=== PATIENT | male | born 1980 | race Hispanic/Latino ===

== ENCOUNTER 2018-09-01 13:15 | Inpatient (IN) ==
[2018-09-01] MEDS ORDERED: ZOSYN 4.5 GM in NS 100 ML IV ONE (13:42)
[2018-09-01] MEDS ORDERED: VANCOMYCIN 1 GM/NS 1 GM/250 ML IVPB IV ONE ×2 (13:42→23:00)
[2018-09-01] MEDS ORDERED: NS 1,000 ML IV ONE ×2 (13:42→15:14)
[2018-09-01] MEDS ORDERED: HUMULIN R (PARKWAY) ONE ×2 (14:19→16:29)
[2018-09-01] MEDS ORDERED: HUMULIN R IV ONE ×2 (14:20→15:33)
[2018-09-01 14:23] LABS: BE 1.2 mmoll (-3.0-3.0); BLOOD TYPE ARTERIAL; HCO3-(ACT) 25.8 mmoll (20.0-26.0); METHB 1.3 % (0.0-1.5); O2(CT) 13.5 mL/dL (15.0-23.0); O2HB 93.5 % (95.0-99.0); PCO2(98.6) 41 mmHg (35-45); PO2(98.6) 73 mmHg (60-100); SAMPLE BLOOD; SAO2 97.1 % (95.0-100.0); THB 10.2 g/dL (11.5-17.4); pH(98.6) 7.41 (7.35-7.45)
[2018-09-01 14:25] LABS: ALBUMIN 3.3 g/dL (3.5-5.0); CALCIUM 9.6 mg/dL (8.8-10.2); CREATININE 1.4 mg/dL (0.7-1.2); POTASSIUM 4.3 mmol/L (3.5-5.1); TOTAL BILIRUBIN 0.4 mg/dL (0.20-1.00); TOTAL PROTEIN 8.6 g/dL (6.3-8.3)
[2018-09-01 14:27] LABS: BASO# 0.04 X1000 (0.0-0.2); BASO% 0.4 % (0.0-0.8); EOS# 0.13 X1000 (0.0-0.7); EOS% 1.2 % (0.0-10.0); HEMATOCRIT 28.6 % (42.0-52.0); HEMOGLOBIN 9.5 g/dL (14.0-18.0); IMM GRAN# 0.03 X1000 (0.0-0.04); IMM GRAN% 0.3 % (0.0-0.5); LYMPH# 1.93 X1000 (1.2-3.4); LYMPH% 17.5 % (20.5-51.1); MCH 27.9 PG (27-31); MCHC 33.2 g/dL (33-37); MCV 84.1 FL (81-99); MONO# 0.71 X1000 (0.11-0.59); MONO% 6.4 % (1.7-9.3); NEUT# 8.18 X1000 (1.4-6.5); NEUT% 74.2 % (42.2-75.2); PLT 443 X1000 (130-400); WBC 11.02 X1000 (4.8-10.8)
[2018-09-01 14:29] LABS: ALLEN TEST YES; MODALITY ROOM AIR
--- NOTE | 2018-09-01 14:45 | EKG Report ---
Test Performed on : 09/01/2018 2:04:42 PM Test Reason : dizzy Blood Pressure : / mmHG Vent. Rate : 105 BPM Atrial Rate : 105 BPM P-R Int : 154 ms QRS Dur : 088 ms QT Int : 358 ms P-R-T Axes : 038 011 028 degrees QTc Int : 473 ms Sinus tachycardia. Otherwise normal ECG When compared with ECG of 15-AUG-2018 11:39, QT has shortened Unconfirmed Result
[2018-09-01 14:56] LABS: INFLUENZA A NEGATIVE (NEGATIVE); INFLUENZA B NEGATIVE (NEGATIVE)
--- NOTE | 2018-09-01 15:09 | Diag Imaging Result Doc PS360 ---
EXAM: CHEST-1 VIEW - 09/01/2018 HISTORY: short of breath TECHNIQUE: One view chest COMPARISON: 08/15/2018 FINDINGS: Heart size is normal. Inspiration is mildly shallow. The lungs appear clear. There is no pleural effusion or pneumothorax identified. IMPRESSION: Mildly shallow inspiration. No other evidence of acute disease. Electronically signed by Parrish Plunkett 09/01/2018 3:06 PM
[2018-09-01 15:12] LABS: SED RATE 137 mm/hr (0-15)
[2018-09-01 15:13] LABS: BILIRUBIN URINE NEGATIVE (NEGATIVE); BLOOD URINE 2+ (NEGATIVE); CLARITY CLEAR (CLEAR); COLOR YELLOW; KETONE URINE NEGATIVE (NEGATIVE); LEUKOCYTES URINE TRACE (NEGATIVE); NITRITE URINE NEGATIVE (NEGATIVE); PROTEIN URINE 2+(100 mg/dL) mg/dL (NEGATIVE); UROBILINOGEN URINE NORMAL
[2018-09-01 15:14] LABS: URINE BACTERIA 2+ /HFP; URINE CAST NONE SEEN /LPF; URINE CRYSTAL NONE SEEN /HPF; URINE EPITHELIAL CELLS <10 /HPF (<10); URINE RBC <10 /HPF (<10); URINE SOURCE CLEAN CATCH; URINE YEAST NONE SEEN /HPF
--- NOTE | 2018-09-01 15:14 | Diag Imaging Result Doc PS360 ---
EXAM: FOOT COMPLETE RIGHT - 09/01/2018 HISTORY: evaluate for osteo TECHNIQUE: Right foot three views COMPARISON: 06/30/2018 FINDINGS: There has been interval amputation of the distal lateral forefoot. There is been associated amputation of the third, fourth, and fifth toes, as well as the distal portions of the third, fourth, and fifth metatarsals. The distal margins of the remaining third, fourth, and fifth metatarsals are mildly irregular, but is difficult to determine if this relates to postsurgical change or early osteomyelitis. There is a new smooth defect at the lateral margin of the distal head of the second metatarsal, presumably from interval osteotomy. There is no fracture or dislocation identified. There are atherosclerotic calcifications noted. IMPRESSION: Postsurgical changes of interval amputation of distal lateral forefoot. Mild irregularity of the distal margins of the remaining portions of third, fourth, and fifth metatarsals. This is nonspecific and could relate to postsurgical change or early osteomyelitis. Apparent smooth osteotomy deformity at lateral margin of distal head of second metatarsal. Atherosclerotic calcifications noted. Electronically signed by Parrish Plunkett 09/01/2018 3:12 PM
--- NOTE | 2018-09-01 15:21 | PROVIDER DOCUMENTATION ---
This chart was entered by Yasmine Antony Scribe, acting as scribe for Morris Fagan MD. HPI-General Adult - General Chief Complaint: Dizziness Stated Complaint: RT TOE AMPUTEE / WOUND CARE Time Seen by Provider: 09/01/18 13:46 Source: patient Allergies/Adverse Reactions: Patient Allergies Allergy/AdvReac Type Severity Reaction Status Date / Time No Known Allergies Allergy Verified 09/01/18 13:25 Home Medications: Home Medication List Medication Instructions Recorded Confirmed Last Taken Type Alcohol Antiseptic Pads [Alcohol 1 ea TP TID #100 med..pad 08/19/18 Unknown Rx Pads] Blood Sugar Diagnostic [Blood 1 ea MC TID #100 strip 08/19/18 Unknown Rx Glucose Test Strip] Blood-Glucose Meter [Accu-Chek 1 ea MC TID #1 ea 08/19/18 Unknown Rx Guide Monitor System] Insulin NPH Hum/Reg Insulin Hm 25 unit SQ BID #1 insuln.pen 08/19/18 Unknown Rx [Humulin 70/30 Kwikpen] - History of Present Illness -Gen Adult Nature of Presenting Problems: 38 y/o male presents to ED with dizziness onset this morning. Pt reports he was [facility] and was sent to ED. Pt states Dr. Minor amputated digits 3- 5 of R foot in June. Pt is alert and oriented. Location of Pain/Injury: reports: feet Pain Radiation: reports: no radiation Quality of Pain: reports: aching Severity: reports: moderate Onset/Duration: reports: this morning Timing: reports: still present Context/Activities at Onset: reports: none Modifying Factors: improves with: nothing Associated Symptoms: reports: dizziness Similar Symptoms Previously?: No Recently seen or treated by another doctor?: Yes (wound care) Review of Systems - Adult - REVIEW OF SYSTEMS - ADULT Constitutional: denies: chills, fever Eyes: reports: no symptoms reported Ears, Nose, Mouth & Throat: reports: no symptoms reported Cardiovascular: denies: chest pain, palpitations Respiratory: denies: cough, shortness of breath Gastrointestinal: denies: abdominal pain, diarrhea, nausea, vomiting Genitourinary: reports: no symptoms reported Musculoskeletal: reports: other (RLE digits amputation). denies: back pain, joint pain Integumentary: reports: no symptoms reported Neurological: reports: dizziness/vertigo. denies: seizure Psychiatric: reports: no symptoms reported Endocrine: reports: no symptoms reported Hematologic/Lymphatic: reports: no symptoms reported Allergic/Immunologic: reports: no symptoms reported All Other Systems: Reviewed and Negative Past History - Adult - PAST MEDICAL HISTORY-ADULT Review of Records: reports: Old Records Reviewed, Nursing Assessment Review, Medications Reviewed Major Childhood Illnesses: reports: denies history Cardiovascular: reports: denies history Respiratory: reports: denies history Gastrointestinal: reports: denies history Obstetrical/Gynecological: reports: denies history Genitourinary: reports: denies history Musculoskeletal: reports: denies history Neurological: reports: denies history Psychiatric: reports: denies history Endocrine/Immune: reports: Diabetes Other Conditions: reports: denies history - PRIOR SURGERIES/PROCEDURES Surgical/Procedure History: reports: reviewed, not pertinent, orthopedic ( extremity) (amputation of R lateral foot and digits 3-5), other (R testicle removed) - IMMUNIZATION STATUS Childhood Immunizations: See Nurse Assessment Flu Vaccine: See Nurse Assessment - FAMILY HISTORY Family History: reviewed, not pertinent - SOCIAL HISTORY Smoking: non-smoker Substance Use: none/never Alcohol Use Frequency: occasionally Living Situation: family Physical Exam-General - PHYSICAL EXAM-ADULT Initial Vital Signs Reviewed: Yes - CONSTITUTIONAL General Appearance: appears well, alert, no apparent distress - EYES Eyes: PERRL/EOMI, pink conjunctivae - HEAD, EARS, NOSE, MOUTH & THROAT HENMT: normocephalic/atraumatic, moist mucous membranes, normal ENT inspection - NECK Neck: non-tender, full range of motion - RESPIRATORY Respiratory: chest non-tender, lungs clear, normal breath sounds - CARDIOVASCULAR Cardiovascular: tachycardia - GASTROINTESTINAL (ABDOMEN) Abdominal Exam: normal bowel sounds, non tender, soft - MUSCULOSKELETAL Back Exam: normal inspection, no CVA tenderness Extremity: normal range of motion, non-tender, normal gait, other (healing amputation of lateral R foot and digits 3-5; good granulation tissue of R foot) - SKIN Integumentary: normal color, warm/dry - NEUROLOGIC Neurologic: grossly normal - PSYCHIATRIC Psych/Mental Status: normal mood/affect, normal thought content, normal thought process Progress - PLAN OF CARE/RESULTS Progress/Plan/Lab Results: Vital Signs - 8 hr 09/01/18 13:20 Temperature 98.4 F Pulse Rate 104 H Respiratory Rate 16 Blood Pressure 98/61 O2 Sat by Pulse Oximetry 95 Orders Category Date Time Status Finger Stick Blood Sugar (ED) DIRECTED Care 09/01/18 13:41 Active CHEST-2 VIEWS [RAD] Stat Exams 09/01/18 13:42 Ordered FOOT COMPLETE RIGHT [RAD] Stat Exams 09/01/18 13:42 Ordered ABG [RESP] Routine Lab 09/01/18 13:41 Ordered ACETONE SERUM [CHEM] Stat Lab 09/01/18 13:41 Ordered BLOOD CULTURE [BLDCUL] Stat Lab 09/01/18 13:41 Uncollected C REACTIVE PROT QUANT [CHEM] Stat Lab 09/01/18 13:41 Uncollected CBC WITH ELECTRONIC DIFF [HEME] Stat Lab 09/01/18 13:41 Uncollected COMPREHENSIVE METABOLIC PANEL [CHEM] Stat Lab 09/01/18 13:[address] Stat Lab 09/01/18 13:41 Uncollected LACTATE, PLASMA [CHEM] Stat Lab 09/01/18 13:41 Uncollected SED RATE [HEME] Stat Lab 09/01/18 13:42 Uncollected TROPONIN T Stat Lab 09/01/18 13:[address] W/POSS RFLX CULT [URINALYSIS] Stat Lab 09/01/18 13:42 Uncollected WOUND CULTURE INC GRAM STAIN [RM] Stat Lab 09/01/18 13:44 Uncollected 0.9% Sodium Chloride Inj [Ns] 1,000 ml Med 09/01/18 13:42 Active IV 999 mls/hr Piperacillin/Tazobactam [Zosyn] 4.5 gm Med 09/01/18 13:42 Active 0.9% Sodium Chloride Inj [Ns] 100 ml IV NOW Vancomycin 1 gm/Ns Med 09/01/18 13:42 Active 1 gm in 250 ml IV NOW EKG [EKG] Stat Ther 09/01/18 13:41 Ordered Laboratory Tests 09/01/18 09/01/18 09/01/18 13:55 13:55 13:55 WBC RBC Hgb Hct MCV MCH MCHC RDW Std Deviation Plt Count MPV Immature Gran % (Auto) Neut % (Auto) Lymph % (Auto) Miner % (Auto) Eos % (Auto) Baso % (Auto) Immature Gran # (Auto) Neut # (Auto) Lymph # (Auto) Miner # (Auto) Eos # (Auto) Baso # (Auto) Specimen Type ARTERIAL Sample Site R RADIAL pH 7.41 pCO2 41 pO2 73 HCO3 25.8 Base Excess 1.2 Oxyhemoglobin 93.5 L ABG O2 Sat (Calculated) 13.5 L ABG O2 Saturation 97.1 ABG Carboxyhemoglobin 2.40 ABG Methemoglobin 1.3 Maurice Test YES A-a O2 Difference 25.0 Total Hemoglobin 10.2 L Lactate 0.80 Blood Gas Modality ROOM AIR FiO2 % 21.0 Sodium 127 L Potassium 4.3 Chloride 89 L Carbon Dioxide 24 L Anion Gap 14 BUN 18 Creatinine 1.4 H Estimated GFR/1.73 m2 56 BUN/Creatinine Ratio 13 Glucose 525 H* Calculated Osmolality 281 Calcium 9.6 Total Bilirubin 0.40 AST 12 ALT 9 L Alkaline Phosphatase 145 H Troponin T Total Protein 8.6 H Albumin 3.3 L Globulin 5.0 Albumin/Globulin Ratio 1.0 Plasma Lactate Acetone Level NEGATIVE Influenza A (Rapid) Influenza B (Rapid) 09/01/18 09/01/18 09/01/18 13:55 13:55 13:55 WBC 11.02 H RBC 3.40 L Hgb 9.5 L Hct 28.6 L MCV 84.1 MCH 27.9 MCHC 33.2 RDW Std Deviation 12.0 Plt Count 443 H MPV 9.0 Immature Gran % (Auto) 0.3 Neut % (Auto) 74.2 Lymph % (Auto) 17.5 L Miner % (Auto) 6.4 Eos % (Auto) 1.2 Baso % (Auto) 0.4 Immature Gran # (Auto) 0.03 Neut # (Auto) 8.18 H Lymph # (Auto) 1.93 Miner # (Auto) 0.71 H Eos # (Auto) 0.13 Baso # (Auto) 0.04 Specimen Type Sample Site pH pCO2 pO2 HCO3 Base Excess Oxyhemoglobin ABG O2 Sat (Calculated) ABG O2 Saturation ABG Carboxyhemoglobin ABG Methemoglobin Maurice Test A-a O2 Difference Total Hemoglobin Lactate Blood Gas Modality FiO2 % Sodium Potassium Chloride Carbon Dioxide Anion Gap BUN Creatinine Estimated GFR/1.73 m2 BUN/Creatinine Ratio Glucose Calculated Osmolality Calcium Total Bilirubin AST ALT Alkaline Phosphatase Troponin T 0.039 Total Protein Albumin Globulin Albumin/Globulin Ratio Plasma Lactate 2.1 Acetone Level Influenza A (Rapid) Influenza B (Rapid) 09/01/18 14:29 WBC RBC Hgb Hct MCV MCH MCHC RDW Std Deviation Plt Count MPV Immature Gran % (Auto) Neut % (Auto) Lymph % (Auto) Miner % (Auto) Eos % (Auto) Baso % (Auto) Immature Gran # (Auto) Neut # (Auto) Lymph # (Auto) Miner # (Auto) Eos # (Auto) Baso # (Auto) Specimen Type Sample Site pH pCO2 pO2 HCO3 Base Excess Oxyhemoglobin ABG O2 Sat (Calculated) ABG O2 Saturation ABG Carboxyhemoglobin ABG Methemoglobin Maurice Test A-a O2 Difference Total Hemoglobin Lactate Blood Gas Modality FiO2 % Sodium Potassium Chloride Carbon Dioxide Anion Gap BUN Creatinine Estimated GFR/1.73 m2 BUN/Creatinine Ratio Glucose Calculated Osmolality Calcium Total Bilirubin AST ALT Alkaline Phosphatase Troponin T Total Protein Albumin Globulin Albumin/Globulin Ratio Plasma Lactate Acetone Level Influenza A (Rapid) NEGATIVE Influenza B (Rapid) NEGATIVE Result Diagrams: 09/01/18 13:55 09/01/18 13:55 - REASSESSMENT Reassessment #1 Time Reassessed: 15:17 Status: improving (Still tachycardic, but states he feels a little better after IVF and insulin. Given also Vanco and Zosyn. Patient meets criteria for sepsis , but is not likely severe sepsis.) - EKG 1 Time of EKG reading by physician:: 14:04 EKG Read and Signed by:: Morris Fagan EKG Interpretation (*Must complete 3 of following elements*): Normal Rate: 105 Rhythm: Sinus tach [place]: normal QRS: normal SD Interval: normal ST Wave: normal - XRAY 1 XRAY Study: Chest Impression: Abnormal (FINDINGS: Heart size is normal. Inspiration is mildly shallow. The lungs appear clear. There is no pleural effusion or pneumothorax identified. IMPRESSION: Mildly shallow inspiration. No other evidence of acute disease. Electronically signed by Parrish Plunkett 09/01/2018 3:06 PM) - CONSULTS/PCP/HOSPITALIST Notification #1 *Consult/PCP/Hospitalist*: [place] Time Discussed: 15:17 Consult Disposition: Will see in ED #2 Consult: Kathia Time Discussed: 15:20 (will tell Figh and someone will see in consult) Departure - Departure Date of Disposition Decision: 09/01/18 Time of Disposition Decision: 15:17 DIAGNOSIS: Osteomyelitis of foot, right, acute, Type 1 diabetes mellitus with hyperglycemia, with long-term current use of insulin Sepsis Qualifiers: Sepsis type: sepsis due to unspecified organism Qualified Code(s): A41.9 - Sepsis, unspecified organism Disposition: ADMITTED INPATIENT 09 Certified Medical Emergency: Emergent Condition: Fair - Critical Care Note This patient required my direct & personal management of CC.: Yes Total Time (mins): 40 Critical Care Statement: This patient required my direct personal management to treat or rule out processes, the absence of which, could potentiallly result in sudden, clinically significant life or limb threatening deterioration. Attestation - Physician/ DOUG Attestation Patient care was provided by Advanced Practice Provider:: No The physician spent face to face time with patient:: Yes Advanced Practice Provider documentation review:: Supervising physician onsite and consulted in the evaluation and care of this patient. The physician did have a face to face encounter with the patient. This chart was documented by the indicated scribe, (Yasmine Antony, [employer]) and accurately reflects the services I performed and decisions made by me, Morris Fagan MD, as attested by the provider's signature.
--- NOTE | 2018-09-01 19:35 | Diag Imaging Result Doc PS360 ---
EXAM: ABDOMEN FLAT/UPRIGHT - 09/01/2018 HISTORY: pain TECHNIQUE: Supine and upright abdomen COMPARISON: None. FINDINGS: The bowel gas pattern appears nonspecific and nonobstructive. There are multiple air-fluid levels on the upright view, there is no substantial gaseous bowel distention identified. There is a moderate amount retained fecal debris in the colon. There is no free air identified. IMPRESSION: Bowel gas pattern which may relate to mild enterocolitis, superimposed on constipation. Electronically signed by Parrish Plunkett 09/01/2018 7:33 PM
[2018-09-01] MEDS ORDERED: ZOFRAN IV PRN (21:09)
[2018-09-01] MEDS ORDERED: VANCOMYCIN IV PER PHARMACY MISC SCH (21:09)
[2018-09-01] MEDS ORDERED: TYLENOL PO PRN (21:09)
[2018-09-01] MEDS: NS 1,000 ML IV SCH (23:35)
[2018-09-01] MEDS: SANTYL OINT TOP SCH (23:35)
[2018-09-01] MEDS: ZOSYN 3.375 GM in NS 50 ML IV SCH (23:36)
[2018-09-01] MEDS: HUMALOG DOSE (PARKWAY) SUBQ SCH (23:36)
--- NOTE | 2018-09-02 00:18 | HISTORY AND PHYSICAL ---
PRIMARY CARE PHYSICIAN: None. Followed by Dr. Minor, General Surgery, and the Wound Center. CHIEF COMPLAINT: Dizziness while at the Wound Care Center today. Sent to the ER for evaluation. HISTORY OF PRESENTING ILLNESS: This is a 38-year-old male who presents to [facility] ER from the Wound Center here at [place] after he was seen there today due to having recent right toe amputation related to diabetic foot ulcer with osteomyelitis, and when he was at the wound clinic today, he complained of being dizzy and overall not feeling well, so they sent him to the emergency room for evaluation and treatment. When he arrived to the emergency room, his blood pressure was 98/61, his sodium was 127, creatinine of 1.4 which appears to be around his baseline as he has some underlying chronic kidney disease. His blood sugar was 525. Anion gap was 14. Acetone level was negative. Influenza A and B were negative. We did a chest x-ray that was read as no evidence of acute disease. We did a right foot x-ray that showed an impression of postsurgical changes of interval amputation of the distal lateral forefoot, nonspecific postsurgical changes or early osteomyelitis, so he is being admitted to the medical unit for further evaluation and treatment. It is noted that he has received 10 units of regular IV x2 separate doses, and his blood sugar is now down to 354. He also received a dose of Zosyn and vancomycin in the emergency room along with 2 L of normal saline. PAST MEDICAL HISTORY: 1. Diabetes type 2 with hyperglycemia, uncontrolled. 2. Osteomyelitis of his right foot. 3. Chronic kidney disease. PAST SURGICAL HISTORY: Right 3rd and 4th toe amputation and right testicle removed. FAMILY HISTORY: Reviewed and noncontributory. SOCIAL HISTORY: Currently lives with family. Denies any tobacco, alcohol, or illicit drug use. ALLERGIES: He has no known drug allergies. HOME MEDICATIONS: We need to obtain a current list and restart as appropriate. Will have nursing to update and confirm the home medications, and then we will restart them as appropriate. LABORATORY DATA: Showed a white blood cell count of 11.02, hemoglobin 9.5, hematocrit 28.6, platelets 443,000. ABG showed a pH of 7.41, pCO2 of 41, pO2 of 73, bicarb 25.8, and this was on room air. Sodium 127, potassium 4.3, chloride 89, CO2 of 24, BUN of 18, creatinine 1.4, glucose 525. Troponin of 0.039. Plasma lactate of 2.1. Urinalysis was negative nitrites with trace of white blood cells, 2+ bacteria, negative ketones. Acetone level was negative. Influenza A and B were negative. IMAGING STUDIES: Chest x-ray showed no evidence of acute disease. Right foot x-ray showed postsurgical changes of interval amputation of the distal lateral forefoot, mild irregularity of the distal margins of the remaining portions of the 3rd, 4th, and 5th metatarsals that was nonspecific and could relate to postsurgical change or early osteomyelitis, apparent smooth osteotomy deformity of the lateral margin of the distal head of the 2nd metatarsal. EKG showed sinus tachycardia at 105. REVIEW OF SYSTEMS: He denied any fever, chills, blurred vision. He was positive for dizziness. He denied any chest pain, coughing, shortness of breath. He denies any abdominal pain, constipation, diarrhea, burning or hurting with urination. PHYSICAL EXAMINATION: On arrival, he had a temperature of 98.4 degrees, pulse 104, respirations 16, blood pressure was 98/61, saturating 95% on room air. Recheck shows a blood pressure of 122/65 currently. GENERAL: This is a 38-year-old male who is lying in the bed and answers questions appropriately. HENT: Normocephalic, atraumatic. Normal ENT inspection. Oropharynx and nares are clear. EYES: Pupils are equal, round, reactive to light and accommodation. Extraocular movements are intact. NECK: Normal inspection. Normal range of motion. LUNGS: Clear to auscultation bilaterally with equal lung expansion and chest wall movement. HEART: Regular rate and rhythm. No murmurs, rubs, or gallops. ABDOMEN: Soft, nontender, nondistended. Bowel sounds are present x4 quadrants. MUSCULOSKELETAL: He has 5/5 strength x4 extremities. He is noted to have on his right foot a dressing that is dry and intact, this being his 3rd, 4th, and 5th toes on the right foot. He was seen at the wound clinic today so I did not remove that dressing at this time. NEUROLOGICAL: The cranial nerves 2 through 12 appear grossly intact. ASSESSMENT: 1. Hyponatremia. 2. Diabetes type 2 with hyperglycemia, uncontrolled. 3. Right diabetic foot ulcer with early osteomyelitis. 4. Some mild hypotension that is now resolved. PLAN: He is going to be admitted to the medical unit. Placed on telemetry. Diabetic diet. We will consult Wound Care. We will consult General Surgery who has been following him in the Wound Care Center. Place him on pattern blood sugars with sliding scale insulin, moderate protocol. Placed him on vancomycin per pharmacy protocol and Zosyn 3.375 g IV q.6. We need update and confirm his home medications and restart those as appropriate. Place on normal saline at 125 mL/hr. We will recheck a CBC and a BMP in the a.m., and further orders after being seen by attending. Dictated by JUANITA Olson for Davonte Keene MD cc: JUANITA Olson MD
--- NOTE | 2018-09-02 00:39 | PROGRESS NOTE ---
DATE: 09/01/2018 The patient came in with nausea, vomiting, abdominal pain, and he had some dizziness. He was seen in the Wound Care Clinic. He had a recent amputation, but was admitted for the nausea, vomiting. He was dizzy, did not feel well. He was a bit tachycardic and hypotensive when he came in. His white count was 11. Sedimentation rate was very high, 137. His sugar was 525. Now he says he has been compliant with his medications, not completely clear he has been. We discharged him on 25 units b.i.d. of 70/30. I am not sure how compliant he has been with that though but we will continue to follow. There is no evidence at this point of DKA but we will continue fluids and continue to monitor closely. There is concern in his foot that he has residual osteomyelitis but he had a resection done per Dr. Minor. We will get them to comment on it. That being said, his sedimentation rate is high but this could be related to multiple issues, not necessarily osteomyelitis. It is not clear he has osteomyelitis based on those x-ray findings. The wound looks okay. He has got a little bit of eschar there. We will get Wound Care to evaluate him and Dr. Minor and he may need some collagenase on a little bit of eschar there but we will continue to follow. Main issues today are getting his sugars under control and getting the nausea medications under control as well. This is a [id number] encounter note with Belia Canchola. cc: Davonte Keene MD
[2018-09-02] MEDS ORDERED: NS 500 ML IV ONE (00:58)
[2018-09-02] MEDS ORDERED: NS 1,000 ML IV ONE (03:13)
[2018-09-02] MEDS ORDERED: MOTRIN PO PRN (03:16)
[2018-09-02] MEDS: ZOSYN 3.375 GM in NS 50 ML IV SCH ×5 (04:17→22:10)
[2018-09-02] MEDS ORDERED: DOPAMINE 800 MG/D5W 800 MG/250 ML IV.SOLN IV SCH (05:30)
[2018-09-02] MEDS ORDERED: DOPAMINE 400 MG/D5W 400 MG/500 ML IV.SOLN IV SCH (05:30)
[2018-09-02] MEDS ORDERED: DOPAMINE 800 MG/D5W 800 MG/250 ML IV.SOLN ONE (05:33)
[2018-09-02] MEDS: NS 1,000 ML IV SCH ×3 (06:30→22:10)
[2018-09-02 07:00] LABS: BASO# 0.03 X1000 (0.0-0.2); BASO% 0.4 % (0.0-0.8); EOS# 0.29 X1000 (0.0-0.7); EOS% 3.8 % (0.0-10.0); HEMATOCRIT 23.6 % (42.0-52.0); HEMOGLOBIN 7.4 g/dL (14.0-18.0); IMM GRAN# 0.01 X1000 (0.0-0.04); IMM GRAN% 0.1 % (0.0-0.5); LYMPH# 1.75 X1000 (1.2-3.4); LYMPH% 23.2 % (20.5-51.1); MCH 26.7 PG (27-31); MCHC 31.4 g/dL (33-37); MCV 85.2 FL (81-99); MONO# 0.64 X1000 (0.11-0.59); MONO% 8.5 % (1.7-9.3); MPV 8.7 FL (7.4-10.4); NEUT# 4.82 X1000 (1.4-6.5); PLT 373 X1000 (130-400); RBC 2.77 XMIL (4.7-6.1); RDW 11.8 % (11.5-14.5); WBC 7.54 X1000 (4.8-10.8)
[2018-09-02 07:18] LABS: AGAP 11; BUN 14 mg/dL (8-22); CALCIUM 8.3 mg/dL (8.8-10.2); CHLORIDE 103 mmol/L (98-107); COSMO 278; CREATININE 1.1 mg/dL (0.7-1.2); ESTIMATED GFR > 60; GLUCOSE 166 mg/dL (70-104); POTASSIUM 3.7 mmol/L (3.5-5.1); SODIUM 137 mmol/L (136-145); TCO2 23 mmol/L (25-35)
[2018-09-02 07:42] LABS: BILIRUBIN URINE NEGATIVE (NEGATIVE); BLOOD URINE TRACE (NEGATIVE); CLARITY CLEAR (CLEAR); COLOR YELLOW; KETONE URINE NEGATIVE (NEGATIVE); LEUKOCYTES URINE NEGATIVE (NEGATIVE); NITRITE URINE NEGATIVE (NEGATIVE); PROTEIN URINE 1+(30 mg/dL) mg/dL (NEGATIVE); SP GRAVITY URINE 1.005; UROBILINOGEN URINE NORMAL
[2018-09-02 07:56] LABS: URINE BACTERIA 1+ /HFP; URINE EPITHELIAL CELLS <10 /HPF (<10); URINE RBC <10 /HPF (<10); URINE SOURCE CATH
[2018-09-02] MEDS ORDERED: HUMALOG (PARKWAY) SUBQ SCH (08:13)
[2018-09-02] MEDS: SANTYL OINT TOP SCH (10:13)
[2018-09-02] MEDS: HUMALOG DOSE (PARKWAY) SUBQ SCH ×3 (10:19→18:10)
[2018-09-02] MEDS ORDERED: TYLENOL PO ONE (12:39)
[2018-09-02] MEDS ORDERED: BENADRYL PO ONE (12:40)
[2018-09-02 15:52] LABS: IRON SATURATION 9 %; TIBC 160 ug/dL; TOTAL IRON 15 ug/dL (53-167); UNBOUND IRON 145 ug/dL (112-346)
[2018-09-02] MEDS ORDERED: VANCOMYCIN 1,650 MG in NS 250 ML IV SCH (17:00)
[2018-09-02] MEDS ORDERED: NS 1,000 ML IV SCH (18:00)
[2018-09-02] MEDS ORDERED: CYANOCOBALAMIN IM SCH (18:30)
[2018-09-02] MEDS ORDERED: ZOFRAN IV PRN (20:47)
[2018-09-02] MEDS ORDERED: HUMULIN 70/30 SUBQ SCH (21:00)
[2018-09-02] MEDS ORDERED: HUMULIN 70/30 (PARKWAY) SUBQ SCH (21:00)
[2018-09-02] MEDS: HUMALOG SUBQ SCH (21:04)
[2018-09-02] MEDS: HUMULIN 70/30 SUBQ SCH (22:02)
[2018-09-02 22:38] LABS: FERRITIN 802 ng/mL (30-400)
[2018-09-03] MEDS: TYLENOL PO PRN ×2 (00:02→16:48)
--- NOTE | 2018-09-03 01:18 | GENERAL SURGERY CONSULTATION ---
DATE: 09/02/2018 REQUESTING PHYSICIAN: Yecenia REASON FOR CONSULTATION: Consult concerning right foot wound. HISTORY OF PRESENT ILLNESS: The patient is a 38-year-old male who is well known to me for a previous debridement and amputations, who was in the Wound Care Center having a wound VAC change. He developed dizziness. He was seen and found to be hypotensive and hyperglycemic with a blood sugar in the 500s. He was admitted, started resuscitation. His wound had previously been debrided and further amputations been done at the beginning of the month, and his wound has continued to worsen. We did have a wound VAC on it, it has been off for right now. The patient has no complaints right now as far as his foot, but he does have exposed bone on the 5th metatarsal. I was asked to weigh an opinion. PAST MEDICAL HISTORY: Includes: 1. Diabetes mellitus type 2. 2. Osteomyelitis. 3. Chronic kidney disease. PAST SURGICAL HISTORY: Includes previous amputations and right testicular surgery. FAMILY HISTORY: Reviewed with the patient, noncontributory. SOCIAL HISTORY: Lives with family. ALLERGIES: None. HOME MEDICATIONS: Reviewed. REVIEW OF SYSTEMS: A full 10 point review of systems obtained and negative other than as specified in HPI. PHYSICAL EXAMINATION: Vital Signs: The patient's current temperature is 97.4 degrees, pulse 96, most recent blood pressure 117/70, O2 saturation 100%. General: No acute distress. male, looks stated age. HEENT: Normocephalic, atraumatic. Pupils are equal, round, and reactive to light. Mucous membranes moist. Oropharynx benign. Neck: Supple. Trachea midline. Cardiovascular: Regular rate and rhythm. Lungs: Grossly clear. Abdomen: Soft, nontender, and nondistended. Extremities: Amputation site to the right foot noted. He does have exposed metatarsal head at the 5th metatarsal. He has a significant amount of slough still in the wound. Vascular: All extremities perfused. Neurologic: Grossly intact. Skin: Wound as noted above. LABORATORY DATA: White blood cell count is 7, hematocrit 23, platelet count 373 ,000. Electrolytes reviewed. IMAGING: Reviewed. ASSESSMENT AND PLAN: The patient is a 38-year-old male with poorly- controlled diabetes, now with continued wound issues to the right foot. 1. Chronic wound to the right foot. At this time we will plan on further debridement and amputation in the OR on Wednesday. Discussed with the patient. He is aware of the risks, benefits, and alternatives were discussed. All questions answered. 2. Multiple medical comorbidities currently being managed by the Hospitalist. 3. Anemia. Hematocrit was 23. Unsure of the exact etiology, but he is apparently going to give blood here soon. cc: Gopal Minor MD MTDD
[2018-09-03] MEDS: HUMALOG SUBQ SCH ×5 (02:16→21:49)
[2018-09-03] MEDS: ZOSYN 3.375 GM in NS 50 ML IV SCH ×4 (04:24→20:27)
[2018-09-03 07:00] LABS: BASO# 0.03 X1000 (0.0-0.2); BASO% 0.3 % (0.0-0.8); EOS# 0.27 X1000 (0.0-0.7); HEMATOCRIT 27.2 % (42.0-52.0); HEMOGLOBIN 8.8 g/dL (14.0-18.0); LYMPH# 2.25 X1000 (1.2-3.4); LYMPH% 25.1 % (20.5-51.1); MCH 27.6 PG (27-31); MCHC 32.4 g/dL (33-37); MCV 85.3 FL (81-99); MONO# 0.74 X1000 (0.11-0.59); MONO% 8.2 % (1.7-9.3); MPV 8.8 FL (7.4-10.4); NEUT# 5.68 X1000 (1.4-6.5); NEUT% 63.4 % (42.2-75.2); PLT 380 X1000 (130-400); RBC 3.19 XMIL (4.7-6.1); RDW 12.1 % (11.5-14.5); WBC 8.97 X1000 (4.8-10.8)
[2018-09-03 07:23] LABS: AGAP 10; BUN 11 mg/dL (8-22); CALCIUM 8.1 mg/dL (8.8-10.2); CHLORIDE 102 mmol/L (98-107); COSMO 276; CREATININE 1.1 mg/dL (0.7-1.2); ESTIMATED GFR > 60; GLUCOSE 174 mg/dL (70-104); POTASSIUM 3.5 mmol/L (3.5-5.1); SODIUM 136 mmol/L (136-145); TCO2 24 mmol/L (25-35)
[2018-09-03] MEDS ORDERED: VENOFER 200 MG in NS 150 ML IV SCH (09:00)
[2018-09-03] MEDS: VENOFER 200 MG in NS 150 ML IV SCH (11:53)
[2018-09-03] MEDS: SANTYL OINT TOP SCH (11:54)
[2018-09-03] MEDS: HUMULIN 70/30 SUBQ SCH ×2 (12:19→18:23)
--- NOTE | 2018-09-03 13:24 | GENERAL SURGERY PROGRESS NOTE ---
DATE: 09/03/2018 TIME: 9:52 in the morning. Mr. Das is comfortable. He is eating. His foot is wrapped. He is prepared for surgery by Dr. Minor on Wednesday. He has no complaints today. We will continue with this current treatment. cc: Raghavendra Snyder MD
[2018-09-03] MEDS: VANCOMYCIN 1,650 MG in NS 250 ML IV SCH (14:55)
[2018-09-03] MEDS: CYANOCOBALAMIN IM SCH ×2 (16:48→18:52)
--- NOTE | 2018-09-03 20:19 | PROGRESS NOTE ---
DATE: 09/03/2018 SUBJECTIVE: This patient is resting comfortably in bed. He is not complaining of pain at this moment. No acute events overnight. OBJECTIVE: Vital Signs: Temperature 100.1 degrees, pulse 93, respiratory rate 16, blood pressure 127/77, oxygen saturation 100% on room air. HEENT: Head normocephalic. No trauma. PERRLA. Neck: Supple. No JVD. No masses. Central trachea. Chest: Clear to auscultation. No wheezing. No rales. Abdomen: Soft, nontender, nondistended. No hepatosplenomegaly. Extremities: Amputation site to the right foot noted. He does have exposed metatarsal head at the 5th metatarsal, everything is covered with a dressing. Neurological: Alert and oriented x3. No focal deficits. LABORATORY: WBC 8.9, hemoglobin 8.8, hematocrit 27.2, platelets 380,000, sodium 136, potassium 3.5, chloride 102, bicarbonate 24, BUN 11, creatinine 1.1, glucose 174, calcium 8.1. ASSESSMENT AND PLAN: 1. Right diabetic foot ulcer with bone exposure/osteomyelitis, surgery department on board. Hopefully, this coming Wednesday. This patient will go to the OR for debridement and/or amputation. This has been discussed with the patient already, continue with antibiotics and pain medication. 2. Uncontrolled type 2 diabetes, blood sugar seems to be better controlled, continue with the same management. I will ask for a new hemoglobin A1c. 3. Hyponatremia, likely pseudohyponatremia due to hyperglycemia, today is normal. 4. Mild hypotension upon admission, resolved. cc: Nehemiah Flor MD
[2018-09-03] MEDS: NS 1,000 ML IV SCH (20:27)
[2018-09-04] MEDS: ZOSYN 3.375 GM in NS 50 ML IV SCH ×3 (02:31→17:55)
[2018-09-04] MEDS: VANCOMYCIN 1,650 MG in NS 250 ML IV SCH (04:12)
[2018-09-04] MEDS: HUMALOG SUBQ SCH ×4 (06:26→21:08)
[2018-09-04 07:08] LABS: BASO# 0.04 X1000 (0.0-0.2); BASO% 0.4 % (0.0-0.8); EOS# 0.25 X1000 (0.0-0.7); EOS% 2.3 % (0.0-10.0); HEMOGLOBIN 7.8 g/dL (14.0-18.0); IMM GRAN# 0.02 X1000 (0.0-0.04); IMM GRAN% 0.2 % (0.0-0.5); LYMPH# 2.45 X1000 (1.2-3.4); LYMPH% 22.2 % (20.5-51.1); MCH 27.9 PG (27-31); MCHC 32.5 g/dL (33-37); MCV 85.7 FL (81-99); MONO# 0.78 X1000 (0.11-0.59); MONO% 7.1 % (1.7-9.3); MPV 8.8 FL (7.4-10.4); NEUT# 7.49 X1000 (1.4-6.5); NEUT% 67.8 % (42.2-75.2); PLT 465 X1000 (130-400); RDW 12.1 % (11.5-14.5); WBC 11.03 X1000 (4.8-10.8)
[2018-09-04 07:22] LABS: HEMOGLOBIN A1C 10.9 % (4.8-6.0)
[2018-09-04 07:27] LABS: BUN 6 mg/dL (8-22); CALCIUM 8.3 mg/dL (8.8-10.2); CREATININE 0.9 mg/dL (0.7-1.2); ESTIMATED GFR > 60; GLUCOSE 237 mg/dL (70-104); TCO2 24 mmol/L (25-35)
[2018-09-04 08:02] LABS: CHLORIDE 101 mmol/L (98-107); POTASSIUM 3.9 mmol/L (3.5-5.1); SODIUM 138 mmol/L (136-145)
[2018-09-04 08:19] LABS: AGAP 13; COSMO 281
--- NOTE | 2018-09-04 08:25 | GENERAL SURGERY PROGRESS NOTE ---
DATE: 09/04/2018 SUBJECTIVE: It is 8:15 in the morning. Mr. Das is doing generally well, has no complaints. He understands the plan for surgery for tomorrow. Bandage is dry and intact. cc: Raghavendra Snyder MD
[2018-09-04] MEDS ORDERED: INSULIN PEN NEEDLES ONE (09:49)
[2018-09-04] MEDS: HUMULIN 70/30 SUBQ SCH ×2 (10:06→17:56)
[2018-09-04] MEDS: VENOFER 200 MG in NS 150 ML IV SCH (10:06)
[2018-09-04] MEDS: SANTYL OINT TOP SCH (10:07)
[2018-09-04] MEDS: NS 1,000 ML IV SCH (10:08)
--- NOTE | 2018-09-04 12:07 | PROGRESS NOTE ---
DATE: 09/04/2018 SUBJECTIVE: No acute events overnight. This patient is resting comfortably in bed. The plan is to go for surgery tomorrow. OBJECTIVE: Vital Signs: Temperature 99 degrees, pulse 95, respiratory rate 20, blood pressure 127/84, oxygen saturation 100% on room air. HEENT: Head normocephalic. No trauma. PERRLA. Neck: Supple. No JVD. No masses. Central trachea. Chest: Clear to auscultation. No wheezing. No rales. Abdomen: Soft. Nontender, nondistended. No hepatosplenomegaly. Extremities: No edema. No clubbing. No cyanosis. He does have an exposed metatarsal head at the 5th metatarsal area. Everything is covered with a dressing. Neurological: Alert and oriented x3. No focal deficits. LABORATORY: WBC 11.0, hemoglobin 7.8, hematocrit 24, platelets 465,000. Sodium 138, potassium 2.9, chloride 101, bicarbonate 24, BUN 6, creatinine 0.9, glucose 237, calcium 8.3. ASSESSMENT AND PLAN: 1. Right diabetic foot ulcer with bone exposure/osteomyelitis. Surgery Department on board. Hopefully, he will go for surgery tomorrow. He will be NPO after midnight. 2. Uncontrolled type 2 diabetes. It looks like he did not take his 2 doses of 70/30 yesterday but we started doing that today. We will continue with the same management and we will readjust the dose of the insulin as needed. His hemoglobin A1c is elevated at 10.9, so this patient has not been taking care of his diabetes at home. 3. Hyponatremia upon admission, likely pseudohyponatremia due to hyperglycemia. This is normal. 4. Mild hypotension upon admission, resolved. cc: Nehemiah Flor MD
[2018-09-04] MEDS: CYANOCOBALAMIN IM SCH (17:55)
[2018-09-05] MEDS: ZOSYN 3.375 GM in NS 50 ML IV SCH ×6 (00:47→23:53)
[2018-09-05] MEDS: VANCOMYCIN 1,650 MG in NS 250 ML IV SCH ×2 (01:32→20:27)
[2018-09-05] MEDS: HUMALOG SUBQ SCH ×4 (06:23→20:27)
--- NOTE | 2018-09-05 06:32 | GENERAL SURGERY PROGRESS NOTE ---
DATE: 09/05/2018 SUBJECTIVE: Patient seems to be doing well. He has no questions as far as surgery is concerned. OBJECTIVE: Vital Signs: The patient is currently afebrile. His vital signs are stable. General Examination: No acute distress. Cardiovascular: Regular rate and rhythm. Lungs: Grossly clear. Abdomen: Soft, nontender, nondistended. Extremities: Amputation site unchanged. Laboratory: From yesterday, hematocrit is still down to 24. ASSESSMENT AND PLAN: A 38-year-old with poorly-controlled diabetes and a nonhealing wound to the right foot. 1. Chronic wound to right foot. At this time, we will plan on further debridement and amputation in the operating room today. Discussing the risks, benefits, and alternatives, he is aware. We will try to place the patient's wound VAC. 2. Anemia. At this time, the patient's hematocrit is 24. He was given a unit of blood while at [place]. May need to consider outpatient colonoscopy and esophagogastroduodenoscopy to evaluate further. cc: Gopal Minor MD
[2018-09-05 06:50] LABS: BASO# 0.04 X1000 (0.0-0.2); BASO% 0.4 % (0.0-0.8); EOS# 0.32 X1000 (0.0-0.7); EOS% 3.1 % (0.0-10.0); HEMOGLOBIN 9.3 g/dL (14.0-18.0); IMM GRAN# 0.03 X1000 (0.0-0.04); IMM GRAN% 0.3 % (0.0-0.5); LYMPH% 25.8 % (20.5-51.1); MCH 27.5 PG (27-31); MCHC 32.1 g/dL (33-37); MCV 85.8 FL (81-99); MONO# 0.95 X1000 (0.11-0.59); MONO% 9.1 % (1.7-9.3); MPV 8.6 FL (7.4-10.4); NEUT# 6.41 X1000 (1.4-6.5); NEUT% 61.3 % (42.2-75.2); PLT 438 X1000 (130-400); RBC 3.38 XMIL (4.7-6.1); RDW 12.2 % (11.5-14.5); WBC 10.45 X1000 (4.8-10.8)
[2018-09-05 07:19] LABS: AGAP 12; ALB/GLOB RATIO 0.7; ALBUMIN 2.8 g/dL (3.5-5.0); ALKALINE PHOSPHATASE 96 U/L (32-122); BUN 7 mg/dL (8-22); CHLORIDE 102 mmol/L (98-107); COSMO 282; CREATININE 1.2 mg/dL (0.7-1.2); ESTIMATED GFR > 60; GLUCOSE 141 mg/dL (70-104); GOT 10 U/L (10-34); GPT 7 U/L (10-44); POTASSIUM 3.4 mmol/L (3.5-5.1); SODIUM 141 mmol/L (136-145); TCO2 27 mmol/L (25-35); TOTAL BILIRUBIN 0.17 mg/dL (0.20-1.00); TOTAL PROTEIN 7.1 g/dL (6.3-8.3)
[2018-09-05 07:57] LABS: LYMPHS 38 % (21-51); MONO 2 % (1-9); SEGS 60 % (42-75)
[2018-09-05] MEDS: VENOFER 200 MG in NS 150 ML IV SCH (08:45)
[2018-09-05] MEDS: SANTYL OINT TOP SCH (08:46)
[2018-09-05] MEDS: HUMULIN 70/30 SUBQ SCH ×2 (09:02→19:03)
[2018-09-05] MEDS ORDERED: VERSED ONE (11:19)
[2018-09-05] MEDS ORDERED: XYLOCAINE-MPF 2% ONE (11:19)
[2018-09-05] MEDS ORDERED: FENTANYL ONE (11:19)
[2018-09-05] MEDS ORDERED: DIPRIVAN 1% ONE (11:19)
--- NOTE | 2018-09-05 13:43 | OPERATIVE NOTE ---
PROCEDURE DATE: 09/05/2018 PREOPERATIVE DIAGNOSES: 1. Chronic wound, right foot. 2. Osteomyelitis of the right 5th metatarsal. POSTOPERATIVE DIAGNOSES: 1. Chronic wound, right foot. 2. Osteomyelitis of the right 5th metatarsal. PROCEDURES: 1. Debridement of skin, subcutaneous tissue, muscle, and fascia measuring 20 square cm. 2. Amputation of 5th right metatarsal bone. 3. Placement of a negative pressure wound dressing. SURGEON: Gopal iMnor MD POLYSOMNOGRAPHER: None. ANESTHESIA: General endotracheal. INTRAOPERATIVE FINDINGS: As dictated. COMPLICATIONS: None at time of this dictation. ESTIMATED BLOOD LOSS: 10 mL. SPECIMEN REMOVED: Bone, skin, and subcutaneous tissue. BRIEF HISTORY: A 38-year-old male with poorly-controlled diabetes. He had a chronic wound that was not healing and we needed to debride more bone. The risks, benefits, and alternatives were discussed. All questions answered. DESCRIPTION OF PROCEDURE: After informed consent was obtained, the patient was brought to the operative theatre and transferred to the operative table, placed in supine position. General endotracheal anesthesia was then performed without complication. A formal time-out was then performed, confirming patient, date, and procedure. All were in agreement. At that time, attention was turned to the right foot. The right foot was prepped and draped in sterile fashion. After the time-out, we turned our attention to it. We debrided back some of the skin, subcutaneous tissue, muscle, and fascia. It was approximately 20 square cm. We extended the incision laterally to find the junction of the tarsal bone and the metatarsal, got into the synovial joint, and removed the 5th metatarsal completely. There was some necrotic tissue, which we debrided. We then closed it in an extended excision with nylon suture. We then formatted a negative pressure wound dressing with a black sponge and placed it on with a good seal. The patient tolerated the procedure well and was transferred back to the recovery room in stable condition. cc: Gopal Minor MD
[2018-09-05] MEDS ORDERED: NORCO-5 PO PRN (15:09)
[2018-09-05] MEDS: NS 1,000 ML IV SCH (16:40)
--- NOTE | 2018-09-05 18:05 | PROGRESS NOTE ---
DATE: 09/05/2018 SUBJECTIVE: This patient had a surgical procedure today, debridement of skin, subcutaneous tissue, muscle and fascia measuring about 20 cm2, amputation of the 5th right metatarsal bone, and placement of a negative pressure wound dressing. He seems to be tolerating well the procedure. He is not complaining of pain at this moment. Will continue with antibiotics and basically the same management. Surgery Department following this patient closely. OBJECTIVE: Vital Signs: Temperature 97.8, pulse 96, respiratory rate 16, blood pressure 121/78, oxygen saturation 98% on room air. HEENT: Head normocephalic. No trauma. PERRLA. Neck: Supple. No JVD. No masses. Central trachea. Chest: Clear to auscultation. No wheezing. No rales. Abdomen: Soft, nontender, nondistended. No hepatosplenomegaly. Extremities: Right foot with a new dressing with a wound VAC machine. No signs of bleeding or infection at this point. Neurological: Alert and oriented x3. No focal deficits. LABORATORY DATA: WBC 10.4, hemoglobin 9.3, hematocrit 29, platelets 438,000. Sodium 141, potassium 3.4, chloride 102, bicarbonate 27, BUN 7, creatinine 1.2, glucose 141, calcium 9, albumin 2.8. ASSESSMENT AND PLAN: 1. Right diabetic foot ulcer with bone exposure/osteomyelitis to the 5th metatarsal head, status post debridement of skin, subcutaneous tissue, muscle, and fascia measuring 20 cm2, amputation of the 5th right metatarsal bone, and placement of a negative pressure wound dressing. This procedure has been done today. The patient tolerated the procedure well. Will continue with same management, pain medication, and antibiotics. 2. Uncontrolled type 2 diabetes. Blood sugar seems to be a little bit better controlled today compared with yesterday. Will continue with the same management for now. 3. Likely chronic kidney disease. Will continue to monitor. This is his baseline. Creatinine today is around 1.2. 4. Hyponatremia upon admission. Likely this represents pseudohyponatremia due to hyperglycemia. Today it is normal. 5. Mild hypotension upon admission, resolved. Likely this patient was septic with leukocytosis, hypotension, tachycardia, and a source of infection. 6. Sepsis, as above. cc: Nehemiah Flor MD
[2018-09-06] MEDS: NS 1,000 ML IV SCH ×3 (04:30→16:46)
[2018-09-06] MEDS: ZOSYN 3.375 GM in NS 50 ML IV SCH ×4 (05:31→22:27)
--- NOTE | 2018-09-06 05:58 | GENERAL SURGERY PROGRESS NOTE ---
DATE: 09/06/2018 SUBJECTIVE: The patient seems to be doing okay. His surgery went well yesterday. OBJECTIVE: Vital Signs: The patient is currently afebrile. His vital signs are stable. General Examination: No acute distress. Cardiovascular: Regular rate and rhythm. Lungs: Grossly clear. Abdomen: Soft, nontender, nondistended. Extremities: Wound VAC in place to the right foot. ASSESSMENT AND PLAN: A 38-year-old with poorly-controlled diabetes with nonhealing wound to the right foot. 1. Right foot wound. At this time, doing okay from the surgery. We will continue wound VAC for right now. 2. Anemia. At this time, his hematocrit was 29. We will continue to monitor and, again, we will evaluate him at my office for an outpatient esophagogastroduodenoscopy and colonoscopy. cc: Gopal Minor MD
[2018-09-06] MEDS: HUMALOG SUBQ SCH ×4 (06:19→23:18)
[2018-09-06 07:03] LABS: BASO# 0.02 X1000 (0.0-0.2); BASO% 0.2 % (0.0-0.8); EOS# 0.21 X1000 (0.0-0.7); EOS% 2.2 % (0.0-10.0); HEMATOCRIT 27.9 % (42.0-52.0); HEMOGLOBIN 8.9 g/dL (14.0-18.0); LYMPH# 2.09 X1000 (1.2-3.4); LYMPH% 21.9 % (20.5-51.1); MCH 27.6 PG (27-31); MCHC 31.9 g/dL (33-37); MCV 86.6 FL (81-99); MONO# 0.82 X1000 (0.11-0.59); MONO% 8.6 % (1.7-9.3); MPV 8.4 FL (7.4-10.4); NEUT# 6.41 X1000 (1.4-6.5); NEUT% 67.1 % (42.2-75.2); PLT 454 X1000 (130-400); RBC 3.22 XMIL (4.7-6.1); RDW 12.2 % (11.5-14.5); WBC 9.55 X1000 (4.8-10.8)
[2018-09-06 07:44] LABS: AGAP 10; BUN 8 mg/dL (8-22); CALCIUM 8.6 mg/dL (8.8-10.2); CHLORIDE 98 mmol/L (98-107); COSMO 281; CREATININE 1.1 mg/dL (0.7-1.2); ESTIMATED GFR > 60; GLUCOSE 255 mg/dL (70-104); POTASSIUM 3.5 mmol/L (3.5-5.1); SODIUM 137 mmol/L (136-145); TCO2 29 mmol/L (25-35)
[2018-09-06] MEDS: HUMULIN 70/30 SUBQ SCH ×3 (08:44→18:47)
[2018-09-06] MEDS: VENOFER 200 MG in NS 150 ML IV SCH (08:46)
[2018-09-06] MEDS: PERIDEX MT SCH ×2 (08:46→22:27)
[2018-09-06] MEDS ORDERED: INSULIN PEN NEEDLES ONE (10:26)
--- NOTE | 2018-09-06 11:02 | PROGRESS NOTE ---
DATE: 09/06/2018 SUBJECTIVE: No acute events overnight. This patient is tolerating p.o. Not complaining of pain at this moment. OBJECTIVE: Vital Signs: Temperature 98.7 degrees, pulse 91, respiratory rate 20, blood pressure 126/79, oxygen saturation 99% on room air. HEENT: Head normocephalic. No trauma. PERRLA. Neck: Supple. No JVD. No masses. Central trachea. Chest: Clear to auscultation. No wheezing. No rales. Abdomen: Soft, nontender, nondistended. No hepatosplenomegaly. Extremities: Right foot with a wound VAC machine and dressing. No signs of bleeding or infection at this point. Neurological: Alert and oriented x3. No focal deficits. LABORATORY: WBC 9.5, hemoglobin 8.9, hematocrit 27.9, platelet 454,000. Sodium 137, potassium 3.5, chloride 98, bicarbonate 29, BUN 8, creatinine 1.1, glucose 255, calcium 8.6. ASSESSMENT AND PLAN: 1. Right diabetic foot ulcer with bone exposure/osteomyelitis to the 5th metatarsal head, status post debridement of skin, subcutaneous tissue, muscle and fascia measuring 20 square centimeters, status post amputation of the 5th right metatarsal bone and placement of a negative pressure wound dressing. This procedure was done yesterday, postoperative day #1. This patient is tolerating well the procedure and the treatment. I will continue with the same management, pain medication and antibiotics. 2. Uncontrolled type 2 diabetes. I have increased the dose of his 70/30 from 25 b.i.d. to 30 twice a day. I will continue following the blood sugar closely. His hemoglobin A1c is elevated at 10.9. So, this patient is not taking care of his blood sugar at home. 3. Acute kidney injury, resolved. He may have a little bit of kidney disease already. 4. Hyponatremia upon admission likely secondary to pseudohyponatremia due to hyperglycemia. Today is normal. 5. Mild hypotension upon admission, resolved. Likely this patient was septic with leukocytosis, hypotension, tachycardia and a source of infection. 6. Sepsis, as above, secondary to his diabetic foot infection. cc: Nehemiah Flor MD
[2018-09-06] MEDS: VANCOMYCIN 1,650 MG in NS 250 ML IV SCH (12:22)
[2018-09-06] MEDS: SANTYL OINT TOP SCH (12:24)
[2018-09-07] MEDS: ZOSYN 3.375 GM in NS 50 ML IV SCH ×3 (05:11→17:30)
[2018-09-07] MEDS: VANCOMYCIN 1,650 MG in NS 250 ML IV SCH (05:45)
[2018-09-07] MEDS: NS 1,000 ML IV SCH (06:31)
--- NOTE | 2018-09-07 06:33 | GENERAL SURGERY PROGRESS NOTE ---
DATE: 09/07/2018 SUBJECTIVE: Patient seems to be doing well. OBJECTIVE: Vital Signs: Patient is currently afebrile. His vital signs are stable. General: No acute distress. Cardiovascular: Regular rate and rhythm. Lungs: Grossly clear. Abdomen: Soft, nontender, and nondistended. Extremities: Wound VAC in place. ASSESSMENT AND PLAN: A 38-year-old poorly-controlled diabetic with nonhealing wound to the right foot. 1. Right foot wound. At this time, doing well from a surgical point of view. Plan is to change his wound VAC today. At that point, if the wound looks like it is doing okay, may transition to getting him out of here and discharged. 2. Anemia. At this time, his hematocrit is down to 27 yesterday. Again, we will do an outpatient evaluation with EGD and colonoscopy. It may be anemia of chronic disease. cc: Gopal Minor MD
[2018-09-07 06:59] LABS: HEMATOCRIT 28.8 % (42.0-52.0); HEMOGLOBIN 9.1 g/dL (14.0-18.0)
[2018-09-07 07:50] LABS: AGAP 9; BUN 9 mg/dL (8-22); CALCIUM 8.9 mg/dL (8.8-10.2); CHLORIDE 102 mmol/L (98-107); COSMO 280; CREATININE 1.2 mg/dL (0.7-1.2); ESTIMATED GFR > 60; GLUCOSE 130 mg/dL (70-104); POTASSIUM 3.3 mmol/L (3.5-5.1); SODIUM 140 mmol/L (136-145); TCO2 29 mmol/L (25-35)
[2018-09-07] MEDS ORDERED: KLOR-CON PO ONE (09:21)
[2018-09-07] MEDS: SANTYL OINT TOP SCH (09:56)
[2018-09-07] MEDS: VENOFER 200 MG in NS 150 ML IV SCH (09:58)
[2018-09-07] MEDS: PERIDEX MT SCH (09:58)
[2018-09-07] MEDS: HUMULIN 70/30 SUBQ SCH (09:59)
[2018-09-07] MEDS: HUMALOG SUBQ SCH ×2 (11:53→17:31)
[2018-09-07 16:08] VITALS: BP 134/83
[2018-09-07] MEDS ORDERED: INSULIN PEN NEEDLES ONE (17:44)
--- NOTE | 2018-09-08 05:54 | DISCHARGE SUMMARY ---
ADMISSION DATE: 09/01/2018 DISCHARGE DATE: 09/07/2018 DISCHARGE DIAGNOSES: 1. Diabetic foot ulcer with bone exposure/osteomyelitis to the fifth metatarsal head, status post debridement of the skin, subcutaneous tissue, muscle, and fascia, measuring 20 square cm, status post amputation of the fifth right metatarsal bone and placement of a negative pressure wound dressing. 2. Uncontrolled type 2 diabetes. 3. Acute kidney injury. 4. Hyponatremia upon admission, likely pseudohyponatremia due to hyperglycemia. 5. Hypotension upon admission. 6. Sepsis secondary to diabetic foot infection. HOSPITAL COURSE: A 38-year-old, male with a past medical history of uncontrolled type 2 diabetes, osteomyelitis of his right foot, and chronic kidney disease. Presented to [facility] ER from the wound center here at [place] after he was seen there today due to having recent right toe amputation related to diabetic foot ulcer with osteomyelitis. When he was in the wound clinic today, he complained of being dizzy and am not feeling well so they sent him to the emergency room for evaluation and treatment. When he arrived to the emergency room, his blood pressure was 98/61. Sodium level 127, creatinine 1.4 which appears to be around his baseline as he has some underlying CKD. Blood sugar was elevated at 525, anion gap 14. Acetone level was negative. Influenza A and B negative. We did an x-ray that did not show any evidence of acute disease. X-ray of the foot showed an impression of postsurgical changes of amputation of the distal lateral forefoot, nonspecific surgical changes or early osteomyelitis so he has been admitted to the medical unit for further evaluation and treatment. He was noted that he has received 10 units of regular insulin IV x2 separate doses and his blood sugar is now down to 354. He also received a dose of Zosyn and vancomycin in the emergency room, along with 2 L of normal saline. Everything was associated with nausea, vomiting, abdominal pain and, like I mentioned before, some dizziness. There is a concern in his foot that he has residual osteomyelitis but he had a resection done by Dr. Minor. He was consulted and he has requested to transfer this patient to [facility] for further amputation in the OR of the fifth metatarsal head and more debridement. His hemoglobin was low and he received 1 unit of PRBC. It looks like this patient is not using his medications as prescribed. He was placed on antibiotics. Blood culture as well as wound culture and urine culture were done. His right foot culture showed a Streptococcal agalactiae, sensitive to ampicillin, vancomycin, levofloxacin, and penicillin. He was getting Zosyn and vancomycin during the course of his hospitalization. Last 09/05/2018, he went to the OR where he had a debridement of the skin, subcutaneous tissue, muscle, and fascia measuring 20 square cm, amputation of the fifth right metatarsal bone , placement of a negative pressure wound dressing. After that, the patient was getting better on a daily basis. He was placed, like I said, on a wound VAC machine. Wound care was taking care of him as well. Today, he was re-evaluated. The wound looks good so we have decided to discharge this patient with an active followup by his primary care doctor. Also, he will be following with Dr. Minor as an outpatient. He needs to go to the wound care clinic two times a day and he will be discharged with a wound VAC machine as well. Upon discharge, the patient was in a stable medical condition, tolerating p.o., and even ambulating. PHYSICAL EXAMINATION: Vital Signs: Temperature 98.8 degrees, pulse 89, respiratory rate 16, blood pressure 134/83, oxygen saturation 100% on room air. HEENT: Head normocephalic. No trauma. PERRLA. Neck: Supple. No JVD. No masses. Central trachea. Chest: Clear to auscultation. No wheezing. No rales. Abdomen: Soft, nontender, nondistended. No hepatosplenomegaly. Extremities: Right foot with a wound VAC machine and new dressing. No signs of bleeding or new infection. Neurological Examination: The patient is alert and oriented x3. No focal deficits. LABORATORY DATA: Hemoglobin 9.1, hematocrit 28.8. Sodium 140, potassium 3.3, chloride 102, bicarbonate 29, BUN 9, creatinine 1.2, glucose 130, calcium 8.9. DISCHARGE MEDICATIONS: 1. Penicillin V 500 mg p.o. q.8 hours to complete 14 days of treatment. 2. Humulin 70/30 with 25 units subcutaneously b.i.d. 3. Fontana 5 one tablet p.o. q.4 hours p.r.n. 4. Acetaminophen 650 mg p.o. q.6 hours p.r.n. fever. Time discharging this patient was 35 minutes. cc: Nehemiah Flor MD MTDD
== END 2018-09-07 17:59 | disposition home or self-care (01) | DRG 854 ==
LOC: P.ED 13:15 → P.MEDSURG 19:41 → SUATTDRO 19:41 → P.EDIPHOLD 09-02 05:48 → P.MEDSURG 09-02 08:49 → 4N 09-02 19:47
PROVIDERS: ATTEND Internal Medicine
CPT/HCPCS: 36415; 36430; 71010; 71045; 73630; 74019; 74020; 80048; 80053; 80202; 81001; 82009; 82270; 82607; 82728; 82746; 82805; 82948; 83036; 83540; 83550; 83605; 84484; 85014; 85018; 85025; 85651; 86850; 86900; 86901; 86920; 87040; 87070; 87077; 87088; 87186; 87275; 87276; 87804; 88304; 93005; 94761; 94799; 96365; 96368; 96375; 96376; 99285; A9270; J1265; J1756; J1815; J2250; J2543; J3010; J3370; J3420; J7030; J7050; P9016; XXXXX

== ENCOUNTER 2018-12-15 09:21 | Inpatient (IN) ==
--- NOTE | 2018-12-15 09:51 | GENERAL SURGERY CONSULTATION ---
DATE: 12/15/2018 REASON FOR CONSULTATION: Concerning a right foot wound. HISTORY OF PRESENT ILLNESS: A 38-year-old, male well known to me, on whom I had done previous debridements and amputations, and been following in the wound care center for a diabetic foot ulcer. He has actually had some significant improvement in his wound but came in today to the wound care center with worsening and new tract swelling, some mild tachycardia, and mildly hypertensive, concerning that he might be developing a more extensive infection and that we might need to do a [id number] amputation. I have discussed this case with Bala with the hospitalist service. We will get him admitted to [facility]. He is doing okay otherwise at this moment. PAST MEDICAL HISTORY: Includes diabetes, osteomyelitis, chronic kidney disease. PAST SURGICAL HISTORY: Includes previous amputation, right testicular surgery. FAMILY HISTORY: Reviewed with the patient and noncontributory. SOCIAL HISTORY: Lives with family. ALLERGIES: None. HOME MEDICATIONS: Reviewed. REVIEW OF SYSTEMS: A full 10 point review of systems was obtained and negative except as specified in the HPI. PHYSICAL EXAMINATION: Vital Signs: The patient's current temperature is 99.1 degrees, pulse 105, blood pressure 96/59, respiratory rate 98. General Examination: No acute distress. male. Looks stated age. HEENT: Normocephalic, atraumatic. Pupils equal, round, reactive to light. Mucous membranes moist. Oropharynx benign. Neck: Supple. Trachea midline. Cardiovascular: Regular rate and rhythm but some mild tachycardia. Lungs: Grossly clear. Abdomen: Soft, nontender, nondistended. Extremities: Amputation site to the right foot noted. Overall, the wound is about the same size but the previously red beefy tissue is now paler and does not look like it is healing as well. There is a new wound that is tracking up from the lateral aspect of his foot. There is some purulent drainage noted. There is swelling noted to the whole dorsal aspect of the foot. Vascular: All extremities perfused. Neurologic: Grossly intact. Skin: Wound as noted above. LABORATORY: Pending. IMAGING: None at this point. ASSESSMENT AND PLAN: A 38-year-old, male with worsening right lower extremity foot wound. Chronic wound to the right foot. At this time, we will plan on admitting him over at [facility] to the hospitalist service. I discussed with them that he will probably need some degree of intravenous antibiotics for a diabetic foot ulcer. He may ultimately require a [id number] amputation. We will try to do Vashe and Drawtex to try to help this wound heal. We will consult wound care nurse and we will monitor him. cc: Gopal Minor MD
[2018-12-15 12:36] LABS: BASO# 0.05 X1000 (0.0-0.2); BASO% 0.3 % (0.0-0.8); EOS# 0.09 X1000 (0.0-0.7); EOS% 0.6 % (0.0-10.0); HEMATOCRIT 30.5 % (42.0-52.0); HEMOGLOBIN 10.3 g/dL (14.0-18.0); IMM GRAN# 0.05 X1000 (0.0-0.04); IMM GRAN% 0.3 % (0.0-0.5); LYMPH# 1.67 X1000 (1.2-3.4); LYMPH% 11.1 % (20.5-51.1); MCH 29.3 PG (27-31); MCHC 33.8 g/dL (33-37); MCV 86.9 FL (81-99); MONO# 1.28 X1000 (0.11-0.59); MONO% 8.5 % (1.7-9.3); MPV 9.1 FL (7.4-10.4); NEUT# 11.95 X1000 (1.4-6.5); NEUT% 79.2 % (42.2-75.2); PLT 425 X1000 (130-400); RBC 3.51 XMIL (4.7-6.1); RDW 12.4 % (11.5-14.5); WBC 15.09 X1000 (4.8-10.8)
[2018-12-15 12:44] LABS: INR 1.05; PROTIME 14.6 Seconds (11.0-16.0)
[2018-12-15 12:55] LABS: ALB/GLOB RATIO 0.7; ALBUMIN 3.6 g/dL (3.5-5.0); CREATININE 1.7 mg/dL (0.7-1.2); MAGNESIUM 2.1 mg/dL (1.5-2.7); POTASSIUM 5.1 mmol/L (3.5-5.1); TOTAL BILIRUBIN 0.52 mg/dL (0.20-1.00); TOTAL PROTEIN 8.5 g/dL (6.3-8.3)
[2018-12-15 13:02] LABS: BANDS 2 % (0-1); EOS 1 % (1-10); LYMPHS 15 % (21-51); MONO 7 % (1-9); SEGS 73 % (42-75); STOMATOCYTES 1+
[2018-12-15] MEDS ORDERED: NS 2,000 ML IV ONE (13:30)
[2018-12-15] MEDS ORDERED: ZYVOX 600 MG/D5W 600 MG/300 ML IVPB IV SCH (13:30)
[2018-12-15] MEDS ORDERED: ZOFRAN IV PRN (13:30)
[2018-12-15] MEDS ORDERED: ZOSYN 2.25 GM in NS 50 ML IV SCH (13:30)
[2018-12-15] MEDS ORDERED: HUMULIN R IV ONE (13:31)
--- NOTE | 2018-12-15 14:04 | Diag Imaging Result Doc PS360 ---
EXAM: CHEST-PORTABLE 12/15/2018 HISTORY: bed TECHNIQUE: AP portable at 1354 COMMENT: There is no evidence of acute cardiac or pulmonary disease. Compared to 09/01/2018, there has been no significant change. IMPRESSION: No evidence of acute disease. Electronically signed by Vern Gray 12/15/2018 2:02 PM
--- NOTE | 2018-12-15 14:07 | Diag Imaging Result Doc PS360 ---
EXAM: FOOT COMPLETE RIGHT 12/15/2018 HISTORY: right foot ulceration TECHNIQUE: Right foot three views COMMENT: Compared to the previous study of 09/01/2018 there has been resection of most of the fifth metatarsal. There is a small amount of calcification which may be related to residual periosteum from the fifth metatarsal. There is also been further resection or erosion of the distal fourth metatarsal compared to the previous study. There is extensive arteriosclerosis. There is soft tissue swelling in the forefoot. There is increased lucency present in the base of the fourth metatarsal and the adjacent cuboid which was not apparent on the previous study. There is some thick periosteal reaction on the lateral cuboid. IMPRESSION: The possibility of chronic osteomyelitis particularly in the base of the fourth metatarsal and cuboid cannot be excluded. Electronically signed by Vern Gray 12/15/2018 2:05 PM
[2018-12-15 14:38] LABS: ALLEN TEST YES; BE -3.1 mmoll (-3.0-3.0); BLOOD TYPE ARTERIAL; HCO3-(ACT) 22.5 mmoll (20.0-26.0); METHB 1.5 % (0.0-1.5); O2HB 94.6 % (95.0-99.0); PCO2(98.6) 32 mmHg (35-45); PO2(98.6) 72 mmHg (60-100); SAMPLE BLOOD; THB 9.7 g/dL (11.5-17.4); pH(98.6) 7.42 (7.35-7.45)
--- NOTE | 2018-12-15 14:40 | HISTORY AND PHYSICAL ---
GENERAL SURGEON: Dr. Gopal Minor. PRIMARY CARE PHYSICIAN: None. CHIEF COMPLAINT: Fever, right foot pain and ulceration. HISTORY OF PRESENT ILLNESS: Mr. Das is a 38--year-old male with a history of diabetes mellitus type 2 requiring insulin and severe peripheral vascular disease, status post amputations of the 3rd, 4th and 5th toes as well as distal portions of the 3rd, 4th and 5th metatarsals, who presents directly from Dr. Minor's wound care office with right foot diabetic ulceration with redness tracking up the leg as well as fever and generalized malaise. He said symptoms started around 2 days ago, and he has had swelling and redness of the foot along with open area of drainage on the right lateral aspect. This got worse over 24 hours, and he went to Dr. Minor's clinic. Dr. Minor evaluated him and felt that he needed admission for IV antibiotics and a full evaluation. The patient has also been complaining of some nausea, vomiting and diarrhea. He states he has nieces in his house that have had gastroenteritis over the past week. He denies any chest pain or shortness of breath, no cough or purulent sputum. He denies lower extremity edema or orthopnea. Thus far, laboratory data have revealed leukocytosis, acute kidney injury, hyperglycemia with mild elevated anion gap metabolic acidosis. We are currently evaluating him for DKA; however, even if he is in true DKA, it is likely very mild and can be treated with insulin and copious fluids. He is hemodynamically stable. He will be admitted for further treatment and evaluation. PAST MEDICAL HISTORY: 1. Type 2 diabetes requiring insulin. Last hemoglobin A1C 10.9% on 09/04/2018. 2. Severe peripheral vascular disease, status post partial amputation of right foot. 3. Question of medical compliance with insulin. PAST SURGICAL HISTORY: Partial amputation of right foot and traumatic orchiectomy due to traumatic event at a younger age. SOCIAL HISTORY: He denies tobacco or drug use. He drinks socially. Currently unemployed. FAMILY HISTORY: Mother from diabetes related illness. REVIEW OF SYSTEMS: A 14-point review of systems was obtained and found to be negative with the exception of the HPI. ALLERGIES: No known drug allergies. HOME MEDICATIONS: We currently do not have a list of his home medications but will be updated in the computer once available. PHYSICAL EXAMINATION: VITAL SIGNS: Blood pressure 138/84; heart rate 113; respiratory rate 18; 02 sat 99% on room air; temperature 101.3. GENERAL: This is a well developed, well nourished male lying in the hospital bed in no acute distress. NEUROLOGICAL: He is awake, oriented and follows commands without focal deficits. HEENT: Head is atraumatic and normocephalic. His pupils are equal, round and reactive to light. His oral mucosa is dry. NECK: Trachea is midline. There is no JVD. CHEST: Clear to auscultation bilaterally. CARDIOVASCULAR: Tachycardia but regular. S1 and S2 are noted. There are no murmurs. GASTROINTESTINAL: Mild epigastric tenderness to palpation. Otherwise, abdomen is soft and nondistended. Bowel sounds are hypoactive. EXTREMITIES: Right lower extremity wrapped in extensive bandage with serosanguineous drainage over the right lateral aspect of the foot. Distal pulses are trace but palpable bilaterally. DIAGNOSTIC DATA: Imaging is pending. WBC 15.09, hemoglobin 10.3, hematocrit 30.5, platelet count 425,000, INR 1.05, sodium 127, corrected for glucose is 133, potassium 5.1, chloride 92, C02 20, anion gap 15, BUN 28, creatinine 1.7, glucose 485, calcium 9. LFTs within normal limits, protein 8.5, albumin 3.6. ASSESSMENT AND PLAN: 1. Sepsis on presentation: Source is clearly his right diabetic foot ulcer. We have ordered blood cultures and will start the patient on Zosyn and daptomycin, daptomycin instead of vancomycin due to the renal failure). We have ordered lactic acid and will give 2 liters of normal saline now followed by continuous infusion. 2. Diabetic right foot ulcer: X-ray of the foot has been ordered. Dr. Minor has already been consulted. antibiotics are infusing. Wound care has been consulted. Will go ahead and consult Dr. Elizabeth as well as he is septic. 3. Acute kidney injury: Review of his creatinine in the past shows that he has gone up as high as 1.7 before, however, this was back in July. He does hover around a creatinine of 1.2, so he likely has an underlying baseline CKD. Urine electrolytes have been ordered, likely prerenal as well as progression of kidney disease. 4. Elevated anion gap metabolic acidosis: Likely a combination of volume depletion, his kidney injury and hyperglycemia. Will order ABG acetone level, lactic acid and treat with aggressive IV fluids and 1 dose of IV insulin followed by high-dose sliding scale and b.i.d. Lantus. Should he be in DKA, insulin drip would be warranted; but, again, this is likely not the case. 5. Anemia of chronic disease: Will order iron studies and treat accordingly. 6. DVT prophylaxis with subcutaneous heparin, given his kidney injury. Further recommendations to follow. Dictated by JUANITA Felipe for Yinka Henao MD cc: JUANITA Felipe MD I have seen and examined Mr Das who presents with fever and non healing diabetic foot. X-ray concerns for osteomyelitis. I have reviewed his labs and imaging studies. I agree with the HPI and the plan reflects my opinion discussed with the LEARNING AND DEVELOPMENT DIRECTOR BASSAM
[2018-12-15] MEDS: CUBICIN 500 MG in NS 100 ML IV SCH (16:05)
[2018-12-15 16:13] LABS: HEMOGLOBIN A1C 10.8 % (4.8-6.0)
[2018-12-15] MEDS: TYLENOL PO PRN ×2 (16:37→23:49)
[2018-12-15] MEDS: HUMALOG SUBQ SCH ×2 (16:37→20:51)
[2018-12-15 18:10] LABS: URINE SOURCE CLEAN CATCH
[2018-12-15 18:12] LABS: BILIRUBIN URINE NEGATIVE (NEGATIVE); BLOOD URINE MODERATE (NEGATIVE); COLOR YELLOW; GLUCOSE URINE >1000 mg/dL (NEGATIVE); KETONE URINE TRACE mg/dL (NEGATIVE); LEUKOCYTES URINE NEGATIVE (NEGATIVE); NITRITE URINE NEGATIVE (NEGATIVE); PROTEIN URINE 200 mg/dL (NEGATIVE); SP GRAVITY URINE 1.016; TURBIDITY URINE CLEAR (CLEAR); UR EPITHELIAL CELLS <10 /HPF (<10); URINE BACTERIA NEGATIVE /HPF; URINE WBC <10 /HPF (<10); UROBILINOGEN URINE NORMAL (NORMAL)
--- NOTE | 2018-12-15 18:19 | INFECTIOUS DISEASE CONSULT REP ---
DATE: 12/15/2018 CONCLUSION: Mr. Das has a tunneling ulcer to his right lateral foot with a probe to bone osteomyelitis and right lower extremity cellulitis. RECOMMENDATIONS: We agree with the use of daptomycin and Zosyn for now. However, we have increased the dose of Zosyn to 3.375 g IV every 6 hours. Due to the presence of osteomyelitis, he will need treatment for approximately 6-8 weeks. Culture of the foot and blood cultures have been obtained, and we are awaiting these results. He has a history of three separate right foot amputations since June of last year, so surgery may be a consideration as well. These plans have been discussed with and recommended by Dr. Elizabeth. DISCUSSION: Mr. Das began having symptoms of redness and swelling to the right lower extremity, that started Wednesday, and a fever that started a couple of days ago, so he came in to see Dr. Minor. Today his foot x-ray shows the possibility of chronic osteomyelitis. He states he is not good at keeping his sugars under control, but does say he takes his insulin twice a day. REVIEW OF SYSTEMS: Constitutional: He started having fevers for the last 2 days, but denies any trauma, falls, or significant weight gain or loss. HEENT: He denies any headaches, dizziness, vision or hearing problems. No mouth pain or sores. Endocrine: He states he started out with diabetes type 2, 17 years ago and has had type 1 diabetes for the last 5 years, requiring insulin administration. Negative for thyroid disorder. Respiratory: No cough, sputum, or shortness of breath. Cardiovascular: Denies chest pain or palpitations. Abdominal: Recent bout of nausea, vomiting, and diarrhea due to gastroenteritis which was shared by everyone in the house. He currently has some mild midepigastric abdominal pain which is leftover from that episode. : No dysuria or flank pain. Integumentary: No rashes or skin lesions other than the ulcers to his right foot. Psych: He denies any anxiety or depression. Hematology/Oncology: He did require a blood transfusion in August when he was found to be anemic. No history of cancer. Musculoskeletal: Denies any arthritis, joint or muscle pain. DIAGNOSTICS: WBC count 15.09, hemoglobin 10.3, platelet count 425,000, creatinine 1.7, GFR 45. Urine bacteria is negative with WBC <10. Foot x-ray shows possible chronic osteomyelitis, particularly in the base of the fourth metatarsal and cuboid. Chest x-ray shows no acute disease. PAST MEDICAL HISTORY: Type 1 insulin-dependent diabetes mellitus which is poorly controlled, peripheral vascular disease, anemia, and chronic right lower extremity osteomyelitis. PAST SURGICAL HISTORY: June last year he had an amputation of his right 3rd and 4th toes. July last year he had a transmetatarsal amputation of his right 3rd, 4th, and 5th toes. In August of this year he had amputation of his 5th metatarsal bone on the right. Years ago he had an orchiectomy. SOCIAL HISTORY: Negative for tobacco or illicit drug abuse. He does drink alcohol occasionally. 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 FAMILY HISTORY: Mother due to diabetes related issues. INFECTIOUS DISEASE: No history of urinary tract infection or pneumonia. However, he has had a history of a streptococcal infection and osteomyelitis to that right foot. ALLERGIES: No known allergies to any food or drugs. HOME MEDICATIONS: Not yet listed. PHYSICAL EXAMINATION: Vital Signs: Temperature is 101.3 degrees, pulse rate 113, respiratory rate 18, blood pressure 138/84, O2 saturation 99% on room air. His weight is 75 kg with a height of 5 feet 5 inches. General: This is a chronically ill-appearing, young man. He is lying in bed, currently in no acute distress. HEENT: Atraumatic, normocephalic. Oral mucous membranes are pink and moist. Conjunctiva are pink. Neck: Supple. Trachea is midline. Cardiovascular: Heart rate is regular and tachycardic. Respiratory: Lung sounds are clear to auscultation bilaterally. Abdomen: Soft, flat, and generally nontender except to the midepigastric area, which has some mild tenderness on palpation. Integumentary: There is erythema and swelling noted to his right lower extremity, around the foot and ankle area. Right lateral foot has an erythematous open wound bed with tunneling and palpable bone. There is also a medial dorsal foot lesion with some necrosis and a small amount of erythematous tissue. The patient is having some pain with manipulation; however, there is some decreased sensation. No other rashes or lesions noted. Neurologic: He is awake, alert, and oriented. Able to move all his extremities around independently in the bed. He states he has no trouble walking on that foot. Thank you for allowing us to see Mr. Das. Dictated by JUANITA Quintanilla for John Elizabeth MD cc: John Elizabeth MD [facility]
[2018-12-15 18:24] LABS: PROTEIN CREAT RATIO 2.1; UR CREAT RANDOM 84.7 mg/dL (14-26); UR PROT RANDOM 174.3 mg/dL
[2018-12-15] MEDS: ZOSYN 3.375 GM in NS 50 ML IV SCH (19:41)
[2018-12-15] MEDS: BASAGLAR SUBQ SCH (20:49)
[2018-12-16] MEDS: ZOSYN 3.375 GM in NS 50 ML IV SCH ×4 (01:09→20:12)
[2018-12-16] MEDS: HUMALOG SUBQ SCH ×5 (06:04→22:40)
[2018-12-16] MEDS: TYLENOL PO PRN ×3 (06:08→20:12)
[2018-12-16] MEDS ORDERED: INSULIN PEN NEEDLES ONE (06:16)
[2018-12-16 07:04] LABS: BASO# 0.04 X1000 (0.0-0.2); BASO% 0.2 % (0.0-0.8); EOS% 1.8 % (0.0-10.0); HEMATOCRIT 28.8 % (42.0-52.0); HEMOGLOBIN 9.7 g/dL (14.0-18.0); IMM GRAN# 0.05 X1000 (0.0-0.04); IMM GRAN% 0.3 % (0.0-0.5); LYMPH# 1.46 X1000 (1.2-3.4); MCH 29.3 PG (27-31); MCHC 33.7 g/dL (33-37); MONO# 1.33 X1000 (0.11-0.59); MONO% 8.2 % (1.7-9.3); MPV 9.1 FL (7.4-10.4); NEUT# 13.13 X1000 (1.4-6.5); NEUT% 80.5 % (42.2-75.2); PLT 397 X1000 (130-400); RBC 3.31 XMIL (4.7-6.1); RDW 12.5 % (11.5-14.5); WBC 16.31 X1000 (4.8-10.8)
[2018-12-16 07:35] LABS: CREATININE 1.5 mg/dL (0.7-1.2); POTASSIUM 4.2 mmol/L (3.5-5.1)
--- NOTE | 2018-12-16 08:07 | GENERAL SURGERY PROGRESS NOTE ---
DATE: 12/16/2018 SUBJECTIVE: Patient seems to be doing okay. OBJECTIVE: Vital Signs: He has got a T-max of 101.6 degrees. Temperature current is 99.6. Remainder of vital signs have been stable. General exam: No acute distress. HEENT: Normocephalic, atraumatic. Pupils equal, round, reactive to light. Mucous membranes moist. Oropharynx benign. Neck: Supple. Trachea midline. Cardiovascular: Regular rate and rhythm. Lungs: Grossly clear. Abdomen: Soft, nontender, nondistended. Extremities: Right foot with dressing intact. Vascular: All extremities perfused. Neurologic: Grossly intact. Skin: Wound as noted above. LABORATORY: Reviewed upon admission. White blood cell count 15, hematocrit 30, platelet count 425. Sodium is 127, BUN 28, creatinine 1.7, glucose 485, glucose currently is 240. A1c is 10.8. IMAGING: Noted. ASSESSMENT AND PLAN: A 38-year-old male with right foot wound. 1. Right foot wound: At this time, I would like to try to get him through the weekend on intravenous antibiotics and reassess on Wednesday. He may ultimately require [id number] amputation if the wound does not seem to be showing any signs of improvement or his overall clinical condition does not seem to be showing any signs of improvement. I appreciate the hospitalist admitting him. 2. Hyperglycemia: At this time being managed by the hospitalist service. 3. Electrolyte abnormalities: At this time, being evaluated by the hospitalist. This may go along with his hyperglycemia. 4. Acute kidney injury. At this time, his creatinine is 1.7. We will continue to monitor, resuscitate. cc: Gopal Minor MD
[2018-12-16 08:09] LABS: EOS 1 % (1-10); LYMPHS 9 % (21-51); MONO 10 % (1-9); SEGS 80 % (42-75)
[2018-12-16] MEDS: BASAGLAR SUBQ SCH ×2 (09:45→22:34)
--- NOTE | 2018-12-16 12:10 | PROGRESS NOTE ---
DATE: 12/16/2018 SUBJECTIVE: Today Mr. Das refers to be feeling fairly okay. Denies any complaints. OBJECTIVE: Vital signs: Blood pressure is 99/50, pulse is 82, respirations 20, temperature is 100.4 degrees. General exam: Mr. Das is a 38-year-old gentleman. He is in bed in no distress. HEENT: Mucosa is pink and moist. Anicteric. Acyanotic. Neck: Supple. Chest: Clear to auscultation. No crepitations. No rhonchi. Cardiovascular: Regular rate and rhythm. No murmurs, no rubs, no gallops. GI: Abdomen is soft, nontender. Extremities: No pedal edema. TECHNOLOGY SOLUTIONS ARCHITECT: Patient is awake, alert, and oriented. Musculoskeletal: The right foot is currently in sterile dressing. He has a ray resection of the third, fourth and fifth toe. He does have some deformity of the foot itself consistent with chronic changes probably from Charcot arthropathy. X-RAYS: An x-ray of the foot yesterday shows possible chronic osteomyelitis, particularly in the base of the fourth metatarsal and cuboid cannot be excluded. Blood culture 2/2 is growing gram- positive cocci, and the Gram stain also from the right foot is also showing gram-negative rods, gram-positive cocci and gram-positive rods. ASSESSMENT: 1. Septic shock with gram-positive cocci bacteremia likely from the right foot. The patient continues to be on adequate fluid resuscitation and antibiotics. Infectious Disease is on board. 2. Diabetic right foot ulcer with osteomyelitis. We will continue with the current antibiotics. 3. Acute kidney injury. We will continue with the intravenous fluids. 4. History of diabetes mellitus, insulin dependent. A1c 10.8 on presentation. The patient is on insulin regimen. 5. Anemia of chronic disease noted. PLAN: So, in general, we will continue with the current IV antibiotics, including daptomycin and Peptazol. Will be pending the ID and sensitivity of the gram-positive cocci and follow further recommendations from Surgery and Infectious Disease. cc: Yinka Henao MD
--- NOTE | 2018-12-16 14:37 | INFECTIOUS DISEASE PROGRESS NO ---
DATE: 12/16/2018 SUBJECTIVE: The patient has an infected right foot which includes osteomyelitis as well as cellulitis. The patient also has a gram-positive coccal bacteremia which I think originates from the patient's foot as well. MEDICATIONS: The patient is on a combination of daptomycin and Zosyn. PHYSICAL EXAMINATION: Vital Signs: Temperature is 100.4 degrees, pulse 82, respirations 20, blood pressure 99/50. Generally: A fairly healthy-appearing young male. He is in no acute distress. Head/eyes/ears/nose/throat: No drainage from the nose or ears. I do not see any white patches on his tongue. Neck: There is no pain when he moves his neck. Lungs: Clear to auscultation. Cardiovascular: Regular heart rate. Abdomen: Soft and nontender. Extremities: The patient's right foot dressing was removed. The patient's large wound on the lateral aspect of his foot does go all the way down to the bone and also tunnels in the foot. Neurologic: Patient is alert. He can move his extremities. There is no tremor. LABORATORY AND X-RAY: The patient's blood cultures are growing gram-positive cocci. Creatinine is 1.5. GFR is 52. The patient's Gram stain from his foot shows gram-positive cocci, gram- positive rods and gram-negative rods. Repeat blood cultures are ordered for 2 days from now. ASSESSMENT AND PLAN: The patient has bacteremia and an infected foot with osteomyelitis and cellulitis. I plan to continue daptomycin and Zosyn pending further cultures and laboratory data. COMORBIDITIES: He is diabetic and his disease is poorly controlled. He also has peripheral vascular disease and anemia. cc: John Elizabeth MD
[2018-12-16] MEDS: CUBICIN 500 MG in NS 100 ML IV SCH (15:00)
[2018-12-17] MEDS: TYLENOL PO PRN ×2 (03:10→16:29)
[2018-12-17] MEDS: ZOSYN 3.375 GM in NS 50 ML IV SCH ×3 (03:11→16:43)
[2018-12-17] MEDS: HUMALOG SUBQ SCH ×4 (06:52→21:49)
[2018-12-17 07:02] LABS: BASO# 0.03 X1000 (0.0-0.2); BASO% 0.2 % (0.0-0.8); EOS# 0.34 X1000 (0.0-0.7); EOS% 2.1 % (0.0-10.0); HEMATOCRIT 26.6 % (42.0-52.0); HEMOGLOBIN 8.8 g/dL (14.0-18.0); IMM GRAN# 0.05 X1000 (0.0-0.04); IMM GRAN% 0.3 % (0.0-0.5); LYMPH# 1.54 X1000 (1.2-3.4); LYMPH% 9.7 % (20.5-51.1); MCHC 33.1 g/dL (33-37); MCV 87.8 FL (81-99); MONO# 1.26 X1000 (0.11-0.59); MONO% 7.9 % (1.7-9.3); MPV 9.2 FL (7.4-10.4); NEUT# 12.69 X1000 (1.4-6.5); NEUT% 79.8 % (42.2-75.2); PLT 405 X1000 (130-400); RBC 3.03 XMIL (4.7-6.1); RDW 12.3 % (11.5-14.5); WBC 15.91 X1000 (4.8-10.8)
[2018-12-17 07:12] LABS: EOS 2 % (1-10); LYMPHS 8 % (21-51); MONO 10 % (1-9); SEGS 80 % (42-75)
[2018-12-17 07:28] LABS: CALCIUM 8.9 mg/dL (8.8-10.2); CREATININE 1.5 mg/dL (0.7-1.2)
--- NOTE | 2018-12-17 09:50 | PROGRESS NOTE ---
DATE: 12/17/2018 Mr. Das is a 38-year-old black male who is sleeping this morning. I did not wake. He has an infection involving his right foot. He is undergoing dressing changes and IV antibiotics. He is receiving IV Zosyn and will need treatments because of his osteomyelitis for 6-8 weeks. He has had a history of right foot amputations. We will continue wound care, IV antibiotics. cc: Irma Swann MD
[2018-12-17] MEDS: BASAGLAR SUBQ SCH ×2 (10:21→21:49)
[2018-12-17] MEDS: CUBICIN 500 MG in NS 100 ML IV SCH (14:20)
--- NOTE | 2018-12-17 15:25 | PROGRESS NOTE ---
DATE: 12/17/2018 SUBJECTIVE: Today Mr. Das refers to be doing okay; did not have any complaints. OBJECTIVE: Vital signs: Blood pressure is 130/81, pulse is 107, respiration is 18, temperature is 100.8 degrees. General exam: Mr. Das is a 38-year-old gentleman. He is in bed in no distress. HEENT: Mucosa is pink and moist. Anicteric. Acyanotic. Neck: Supple. Chest: Good air entry bilateral. There were no crepitations, no rhonchi. Cardiovascular: Regular rate and rhythm. No murmurs, no rubs, no gallops. GI: Abdomen is soft, nontender. Extremities: No pedal edema. PROOF OPERATOR: Patient is awake, alert, and oriented. Musculoskeletal: The right foot is in sterile dressing; seems to be minimally soiled. LABORATORY DATA: WBC is 15.91, hemoglobin is 8.8, platelet count of 405. Chemistry is also reviewed; sodium has normalized, potassium 4.0, creatinine is still 1.5, glucose is a lot better at 146. CURRENT MEDICATIONS: Daptomycin and Zosyn and insulin regimen. ASSESSMENT: 1. Septic shock with gram-positive cocci bacteremia likely from the foot. We are still awaiting the identification and sensitivity of the gram-positive cocci. 2. Diabetic foot ulcer with osteomyelitis. We will continue with the current antibiotics. Surgery is on board. 3. Acute kidney injury. We will continue with intravenous fluids. 4. Diabetes mellitus with presenting A1c of 10.8. The patient is on insulin regimen. Glucose is a lot better today. 5. Anemia of chronic disease. We will continue to follow hemoglobin and hematocrit. PLAN: So, in general, we are going to continue with the current antibiotic coverage, insulin therapy, and await for the gram-positive cocci ID and sensitivity, and modify antimicrobial therapy accordingly. We will also repeat the blood cultures for tomorrow. cc: Yinka Henao MD
[2018-12-17] MEDS ORDERED: D5W IV SCH (18:15)
[2018-12-17] MEDS ORDERED: PENICILLIN SODIUM IV SCH (18:15)
[2018-12-17] MEDS: NS IV SCH (19:38)
[2018-12-17] MEDS: PENICILLIN SODIUM IV SCH (19:38)
[2018-12-17] MEDS ORDERED: OFIRMEV 1000 MG/ISOTONIC SOLN 1,000 MG/100 ML BOTTLE IV ONE (20:59)
[2018-12-18] MEDS: NS IV SCH ×5 (00:49→23:52)
[2018-12-18] MEDS: PENICILLIN SODIUM IV SCH ×5 (00:49→23:52)
[2018-12-18] MEDS: HUMALOG SUBQ SCH ×4 (06:45→21:12)
[2018-12-18 06:55] LABS: BASO# 0.06 X1000 (0.0-0.2); BASO% 0.3 % (0.0-0.8); EOS% 2.1 % (0.0-10.0); HEMATOCRIT 27.3 % (42.0-52.0); HEMOGLOBIN 8.9 g/dL (14.0-18.0); IMM GRAN# 0.08 X1000 (0.0-0.04); IMM GRAN% 0.4 % (0.0-0.5); LYMPH# 1.85 X1000 (1.2-3.4); LYMPH% 9.7 % (20.5-51.1); MCH 28.9 PG (27-31); MCHC 32.6 g/dL (33-37); MCV 88.6 FL (81-99); MONO# 1.62 X1000 (0.11-0.59); MONO% 8.5 % (1.7-9.3); MPV 9.3 FL (7.4-10.4); NEUT# 15.05 X1000 (1.4-6.5); PLT 485 X1000 (130-400); RBC 3.08 XMIL (4.7-6.1); RDW 12.4 % (11.5-14.5); WBC 19.06 X1000 (4.8-10.8)
[2018-12-18 07:18] LABS: CALCIUM 8.6 mg/dL (8.8-10.2); CREATININE 1.4 mg/dL (0.7-1.2); POTASSIUM 3.9 mmol/L (3.5-5.1)
[2018-12-18] MEDS: TYLENOL PO PRN ×3 (08:32→23:52)
[2018-12-18] MEDS: BASAGLAR SUBQ SCH ×2 (08:32→21:13)
--- NOTE | 2018-12-18 13:30 | PROGRESS NOTE ---
DATE: 12/18/2018 SUBJECTIVE: This morning, Mr. Das refers to be doing fairly okay. Denies any new complaints. OBJECTIVE: Vital Signs: Blood pressure is 100/52, pulse is 108, respirations are 18, temperature is 100.2 degrees. General Examination: Mr. Das is a 38-year-old, gentleman. He was in bed. Not seemingly distressed. HEENT: Mucosa is pink and moist. Anicteric. Acyanotic. Neck: Supple. Chest: Clear to auscultation. No crepitations. No rhonchi. Cardiovascular: Regular rate and rhythm. No murmurs, no rubs, no gallops. GI: Abdomen is soft, nontender. Bowel sounds present. Extremities: No pedal edema. The right foot was still in a sterile dressing which was minimally soiled. SCHEDULE SUPERVISOR: The patient is awake, alert, and oriented. Laboratory Data: WBC is 19.06, hemoglobin is 8.9, platelet count of 485,000. Chemistry is also reviewed. Sodium is 135, creatinine is 1.4, glucose was 141 this morning. The patient's right foot wound also showed growth of group B streptococcus and the blood culture was also positive for the same pathogen. ASSESSMENT: 1. Septic shock with group B streptococcus bacteremia, suspected to have come from the right foot. The patient is currently on intravenous penicillin. 2. Right diabetic foot ulcer infection with group B streptococcus associated with osteomyelitis. We will continue with the current antibiotics. Surgery is also on board. I think, at some point, the patient will need surgical exploration. 3. Acute kidney injury. We will continue with the gentle intravenous fluids. 4. Diabetes mellitus with presenting A1c of 10.8. Patient is currently on insulin regimen. We will continue to titrate for better glycemic control. 5. Anemia of chronic disease. Hemoglobin and hematocrit are stable. PLAN: In general, I think Mr. Das is doing a little better. Still febrile but not as much as yesterday. We changed his antibiotics to IV penicillin since the cultures have grown group B streptococcus (Streptococcus agalactiae). We are pending ID evaluation on this and then recommendations on antimicrobial accordingly. I have discontinued the daptomycin and the Zosyn. cc: Yinka Henao MD
--- NOTE | 2018-12-18 18:08 | PROGRESS NOTE ---
DATE: 12/18/2018 SUBJECTIVE: Mr. Das has a right foot infection. It is being dressed daily and he is on IV antibiotics. Dr. Minor is taking care of his wound. OBJECTIVE: Vital signs: His heart rate is 94, blood pressure 129/71, O2 saturation is 96%. He is having fevers of up to 102.8. He is on IV Zosyn. LABORATORY: His white blood cell count is gone from 15 to 19. Hematocrit is 27%. BUN and creatinine are 20 and 1.4. PLAN: We will continue wound care and IV antibiotics. Dr. Minor returns tomorrow. He is eating 25 to 100% of his meals. He looks comfortable. cc: Irma Swann MD
[2018-12-19] MEDS: NS IV SCH (05:55)
[2018-12-19] MEDS: PENICILLIN SODIUM IV SCH (05:55)
[2018-12-19 06:30] LABS: CALCIUM 9.1 mg/dL (8.8-10.2); CREATININE 1.4 mg/dL (0.7-1.2)
[2018-12-19 06:46] LABS: BASO# 0.06 X1000 (0.0-0.2); BASO% 0.4 % (0.0-0.8); EOS# 0.41 X1000 (0.0-0.7); EOS% 2.8 % (0.0-10.0); HEMATOCRIT 27.5 % (42.0-52.0); HEMOGLOBIN 8.8 g/dL (14.0-18.0); IMM GRAN# 0.06 X1000 (0.0-0.04); IMM GRAN% 0.4 % (0.0-0.5); LYMPH% 15.2 % (20.5-51.1); MCH 28.8 PG (27-31); MCV 89.9 FL (81-99); MONO# 1.34 X1000 (0.11-0.59); MONO% 9.2 % (1.7-9.3); MPV 9.1 FL (7.4-10.4); NEUT# 10.43 X1000 (1.4-6.5); PLT 508 X1000 (130-400); RBC 3.06 XMIL (4.7-6.1); RDW 12.7 % (11.5-14.5)
[2018-12-19] MEDS: HUMALOG SUBQ SCH ×4 (06:47→22:29)
--- NOTE | 2018-12-19 07:17 | GENERAL SURGERY PROGRESS NOTE ---
DATE: 12/19/2018 SUBJECTIVE: Patient seems to be doing okay. OBJECTIVE: Vital Signs: Patient is currently with a temperature of 98.3, temperature max in the last 24 hours of 102.8. General Examination: No acute distress. HEENT: Normocephalic, atraumatic. Pupils equal, round, reactive to light. Mucous membranes moist. Oropharynx benign. Neck: Supple. Trachea midline. Cardiovascular: Regular rate and rhythm. Lungs: Grossly clear. Abdomen: Soft, nontender, nondistended. Extremities: Right foot, some aspects seem to be slightly improved, although when I pushed on it, a little bit of purulence out of the wound. Swelling looks less overall. I am not seeing an overall dramatic improvement. Skin: Wound as noted above. Vascular: All extremities perfused. Neurologic: Decreased sensation to the feet. Laboratory: White blood cell count yesterday was 19, hematocrit 27, platelet count 485,000. Microbiology shows group B strep from the wound in one of two blood cultures. ASSESSMENT AND PLAN: A 38-year-old, male with a right foot wound. 1. Right foot wound. At this time, it is the likely source of his fevers. He is bacteremic from it. Repeat cultures are pending but he has the group B strep in his blood and in his wound. I discussed with him likely the need for below the knee amputation. He, at this point, on the amputation, wants to try to hold off. I told him that we would try to continue with the antibiotics for right now then but I do suspect he is ultimately going to require a below-the- knee amputation, especially in the context of bacteremia, his fever, and his continued leukocytosis. 2. Hyperglycemia. Blood sugars have been better controlled, likely again exacerbated by his current wound. 3. Electrolyte abnormalities, seems to be improving. I appreciate the hospitalist's help. 4. Acute kidney injury. At this time, his creatinine is 1.4 which is better than admission. We will continue to monitor and continue to resuscitate. cc: Gopal Minor MD
[2018-12-19 08:03] LABS: EOS 2 % (1-10); LYMPHS 26 % (21-51); MONO 4 % (1-9); SEGS 68 % (42-75)
[2018-12-19] MEDS: BASAGLAR SUBQ SCH ×2 (09:05→22:29)
--- NOTE | 2018-12-19 12:14 | INFECTIOUS DISEASE PROGRESS NO ---
DATE: 12/19/2018 HISTORY OF PRESENT ILLNESS: The patient has a group B streptococcal right foot osteomyelitis and cellulitis with an associated bacteremia as well. MEDICATIONS: The patient is on IV penicillin. PHYSICAL EXAMINATION: Vital Signs: Temperature earlier was 102.2, it is 98.9 now, pulse 89, respirations 16, blood pressure 106/74. General: This is a fairly healthy-appearing young male. He is in no acute distress. Head, eyes, ears, nose, and throat: The patient does not have any drainage from his nose or ears. I did not see any white patches on his tongue. Neck: There is no pain when he moves his neck. Lungs: Clear to auscultation. Cardiovascular: Regular heart rate. Abdomen: Soft and nontender. Extremities: The patient has a large dressing around the right foot. The dressing is intact. Neurologic: The patient is alert. He can move his extremities. There is no tremor. LABORATORY DATA AND X-RAY: There is no new radiographic study. CBC shows a white count 14,500, hemoglobin 8.8, and platelet count of 508,000. Creatinine is 1.4. GFR is 56. Both the patient's blood culture and culture from his right foot are growing group B strep. ASSESSMENT AND PLAN: The patient has a group B streptococcal right foot osteomyelitis and cellulitis with an associated bacteremia. I am changing the patient from IV penicillin to Rocephin 2 g IV every 12 hours. COMORBIDITIES: Include diabetes mellitus which is poorly controlled. He also has peripheral vascular disease. cc: John Elizabeth MD
[2018-12-19] MEDS: ROCEPHIN 2 GM in NS 50 ML IV SCH (13:57)
--- NOTE | 2018-12-19 15:05 | PROGRESS NOTE ---
DATE: 12/19/2018 SUBJECTIVE: This morning, Mr. Das has referred to be doing fairly okay. Denies any complaints. He did have a temperature of 101.5 degrees yesterday at 20:34, but since then has not had anymore. OBJECTIVE: Vital Signs: Currently, blood pressure is 124/71, pulse 108, respirations 18, temperature 99.1 degrees. General: Mr. Das is a 38-year-old gentleman. He is in bed. Not seemingly distress. HEENT: Mucosa is pink and moist. Anicteric. Acyanotic. Neck: Supple. Chest: Good air entry bilateral. There were no crepitations, no rhonchi. Cardiovascular: Regular rate and rhythm. No murmurs, no rubs, no gallops. Abdomen: Soft, nontender. Bowel sounds present. Extremities: No pedal edema. The right lower extremity is in sterile dressing. SUPPORT MERCHANDISER: The patient is awake, alert, and oriented. LABORATORY DATA: WBC is down to 14.50, hemoglobin is 8.8, platelet count of 508,000. Chemistry is also reviewed. Creatinine is 1.4. Glucose is 139. ASSESSMENT: 1. Septic shock on presentation associated with group B Streptococcus bacteremia. The patient has been switched to Rocephin 2 g IV b.i.d. by Infectious Disease today. A repeat blood culture was done yesterday. We are still pending the culture report. 2. Right diabetic foot ulcer associated with osteomyelitis. Cultures positive also for group B strep. The patient is on antibiotics. The patient has been evaluated by surgery at this point, and the plan is just to continue with IV antibiotics for now and will hold off on amputation. 3. Diabetes mellitus with presenting A1c of 10.8. The patient is on insulin regimen and he has better glycemic control. 4. Anemia of chronic disease. Hemoglobin and hematocrit are stable. PLAN: In general, I think Mr. Das is doing a lot better. He is in the hospital, today is day 4. Initially presented because of fever and chills. He was found to be septic. Blood cultures grew group B strep and it is the same pathogen that grew from the foot. We presume that it was a foot infection that got into the blood. The patient was on 2 different types of antibiotic regimen, but he is now on Rocephin since today and was changed by Infectious Disease. We are going to continue with his clinical response. We will also follow up with a repeat blood culture and further recommendations from Surgery and Infectious Disease. cc: Yinka Henao MD
[2018-12-19] MEDS: TYLENOL PO PRN (22:29)
[2018-12-20] MEDS: ROCEPHIN 2 GM in NS 50 ML IV SCH ×2 (02:00→14:51)
[2018-12-20] MEDS ORDERED: INSULIN PEN NEEDLES ONE (06:18)
[2018-12-20 06:36] LABS: BASO# 0.08 X1000 (0.0-0.2); BASO% 0.6 % (0.0-0.8); HEMATOCRIT 27.5 % (42.0-52.0); HEMOGLOBIN 8.8 g/dL (14.0-18.0); IMM GRAN# 0.05 X1000 (0.0-0.04); IMM GRAN% 0.4 % (0.0-0.5); LYMPH# 2.57 X1000 (1.2-3.4); LYMPH% 19.3 % (20.5-51.1); MCH 28.9 PG (27-31); MCV 90.2 FL (81-99); MONO# 1.01 X1000 (0.11-0.59); MONO% 7.6 % (1.7-9.3); NEUT# 9.23 X1000 (1.4-6.5); NEUT% 69.1 % (42.2-75.2); PLT 548 X1000 (130-400); RBC 3.05 XMIL (4.7-6.1); RDW 12.6 % (11.5-14.5); WBC 13.34 X1000 (4.8-10.8)
[2018-12-20] MEDS: HUMALOG SUBQ SCH ×4 (06:41→22:04)
[2018-12-20 07:21] LABS: AGAP 6; BUN 21 mg/dL (8-22); CALCIUM 8.7 mg/dL (8.8-10.2); CHLORIDE 98 mmol/L (98-107); COSMO 276; CREATININE 1.1 mg/dL (0.7-1.2); ESTIMATED GFR > 60; GLUCOSE 247 mg/dL (70-104); POTASSIUM 3.9 mmol/L (3.5-5.1); SODIUM 132 mmol/L (136-145); TCO2 28 mmol/L (25-35)
[2018-12-20 07:28] LABS: LYMPHS 20 % (21-51); MONO 7 % (1-9); SEGS 73 % (42-75)
--- NOTE | 2018-12-20 07:58 | GENERAL SURGERY PROGRESS NOTE ---
DATE: 12/20/2018 SUBJECTIVE: Patient seems to be doing okay. OBJECTIVE: Vital Signs: The patient's temperature max last 24 hours was 100.4. His T current is 97.8. Remainder of vital signs stable. General: No acute distress. HEENT: Normocephalic, atraumatic. Pupils equal, round, reactive to light. Mucous membranes moist, oropharynx benign. Neck: Supple. Trachea midline. Cardiovascular: Regular rate and rhythm. Lungs: Grossly clear. Abdomen: Soft, nondistended, nontender. Extremities: Wound essentially about the same to his right foot with dressing intact. Vascular: All extremities perfused. Skin: As noted above. Neurologic: Decreased sensation to the foot. LABORATORY: White blood cell count yesterday was 14 which is down, hematocrit 27, platelet count 508. Creatinine was 1.4. Microbiology-repeat blood cultures do not show any growth at this point. ASSESSMENT AND PLAN: A 38-year-old male with right foot wound. 1. Right foot wound. At this time, continue current treatment. He is on IV antibiotics. We will need to continue to monitor the wound. I do suspect that he is at high risk for requiring a [id number] amputation but at this time, per the patient request, we will continue IV antibiotics to see if we can get it to improve. 2. Hyperglycemia. At this time seems to be better controlled. Appreciate the hospitalist's help. 3. Electrolyte abnormalities seems to be resolved. Appreciate the hospitalist's help. 4. Acute kidney injury. At this time, his creatinine seems to be stabilizing at 1.4. cc: Gopal Minor MD
[2018-12-20] MEDS: BASAGLAR SUBQ SCH ×2 (11:26→22:04)
--- NOTE | 2018-12-20 18:23 | PROGRESS NOTE ---
DATE: 12/20/2018 SUBJECTIVE: The patient is resting in bed. OBJECTIVE: Vital signs: Temperature is 99.8 degrees, pulse 91, respiratory rate 16, blood pressure is 121/78, oxygen saturation is 98%. HEENT: Atraumatic, normocephalic. Cardiovascular System: S1, S2. Respiratory system has evidence of good air entry bilaterally. Abdomen is soft, nontender. No masses felt. Extremities: Wound site right foot is dressed. LABORATORY DATA: WBC is 13.34, hematocrit is 27.5, with a platelet count of 548. Sodium is 132, potassium 3.9, chloride 98, bicarbonate is 28, BUN is 21, creatinine is 1.1. ASSESSMENT AND PLAN: 1. Septic shock on presentation associated with Group B Streptococcus. The patient now switched to Rocephin 2 g IV twice a day. 2. Right diabetic foot ulcer with osteomyelitis. Cultures positive for Group B Streptococcus. Continue antibiotics. 3. Diabetes mellitus. Continue blood sugar medications as well as sliding scale insulin. 4. Anemia of chronic disease. Follow up on hemoglobin and hematocrit. Transfuse PRBCs as needed. cc: Jun Tanner MD
[2018-12-21] MEDS: ROCEPHIN 2 GM in NS 50 ML IV SCH ×2 (01:46→12:46)
--- NOTE | 2018-12-21 05:51 | GENERAL SURGERY PROGRESS NOTE ---
DATE: 12/21/2018 SUBJECTIVE: The patient seems to be doing okay. OBJECTIVE: Vital Signs: Patient's temperature is 100.2 degrees. The remainder of the vital signs have been stable. General: No acute distress. HEENT: Normocephalic, atraumatic. Pupils equal, round, and reactive to light. Mucous membranes moist, oropharynx benign. Neck: Supple. Trachea midline. Cardiovascular: Regular rate and rhythm. Lungs: Grossly clear. Abdomen: Soft, nontender, nondistended. Extremities: Dressing to right lower extremity intact. Discussed most recent wound care change with nurse. It seems to be improving by report. Vascular: All extremities perfused. Skin: As noted above. Neurologic: Decreased sensation to the foot. LABORATORY: Reviewed from yesterday. White blood cell count is down to 13, hematocrit 27, platelet count 548,000. Blood cultures from the most recent drawing have been negative at 48 hours. ASSESSMENT AND PLAN: A 38-year-old, male with right foot wound. 1. Right foot wound. At this time, we will continue IV antibiotics. His most recent blood cultures have been negative. May need to refer to Infectious Disease about duration of IV antibiotics. The patient just does not want an amputation, so we will comply with his wishes. 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 2. Hyperglycemia. At this time seems to be better controlled. 3. Electrolyte abnormalities. His sodium is still a little bit low, but I appreciate the hospitalist's help. 4. Acute kidney injury seems to have resolved. cc: Gopal Minor MD
[2018-12-21] MEDS: HUMALOG SUBQ SCH ×4 (06:43→21:48)
[2018-12-21] MEDS: BASAGLAR SUBQ SCH ×2 (09:20→21:50)
--- NOTE | 2018-12-21 16:05 | PROGRESS NOTE ---
DATE: 12/21/2018 SUBJECTIVE: Patient resting in bed. OBJECTIVE: Vital Signs: Temperature 99.4 degrees, pulse 89, respiratory rate 16, blood pressure 121/81, oxygen saturation 95%. HEENT: Atraumatic, normocephalic. Cardiovascular System: S1, S2. Respiratory system has evidence of good air entry bilaterally. Abdomen is soft, nontender. No masses felt. Extremities: Wound site, lateral aspect of right foot, looks clean and dry. Central Nervous System: No obvious focal deficits noted. LABORATORIES: Blood sugar is [*]. ASSESSMENT AND PLAN: 1. Diabetic foot ulcer with osteomyelitis. Cultures positive for Group B Streptococcus. Continue antibiotics as recommended by Infectious Disease. 2. Diabetes mellitus. Continue blood sugar monitoring as well as sliding scale insulin. 3. Anemia of chronic disease. Follow up on hemoglobin and hematocrit. Transfuse PRBCs as needed. cc: Jun Tanner MD
--- NOTE | 2018-12-21 16:10 | INFECTIOUS DISEASE PROGRESS NO ---
DATE: 12/21/2018 PRESENT ILLNESS: Mr. Das has a group B streptococcal infection to his right foot with osteomyelitis, cellulitis, and an associated bacteremia. MEDICATIONS: He is receiving Rocephin 2 g IV every 12 hours. PHYSICAL EXAMINATION: Vital Signs: Temperature is 99.4, pulse rate 89, respiratory rate 16, blood pressure 121/81. O2 sats 95% on room air. General: This is a chronically ill-appearing, middle-aged gentleman. He is lying in bed, currently in no acute distress. HEENT: Atraumatic, normocephalic. Oral mucous membranes are pink and moist. Conjunctivae are pale. Neck: Supple. Trachea is midline. Cardiovascular: Heart rate is regular. Respiratory: Lung sounds are clear to auscultation bilaterally. Abdomen: Soft, round. Nontender. Bowel sounds are active. Neurologic: He is awake, alert, oriented and able to move around in the bed independently. Integumentary: There is a dressing in place to his right foot which was changed earlier this morning. It has some serosanguineous drainage bleeding through onto the bed. LABORATORY AND X-RAY: None available today; however, yesterday his white count was 13.34, hemoglobin 8.8, platelet count 548,000 creatinine 1.1. Estimated GFR is greater than 60. His right foot and blood cultures have grown a group B strep agalactiae with the most recent blood cultures being sterile. No imaging reports today. ASSESSMENT AND PLAN: Mr. Das has a group B strep osteomyelitis to his right foot and at this point does not want to have amputation surgery. We will continue his Rocephin 2 g IV every 12 hours while he is in the hospital. The plan will be for him to have a PICC line in the morning and receive Rocephin 2 gm IV once daily as an outpatient. He will need to complete 6 full weeks which will be an end of treatment date of 01/29/2019. Orders have been put in for a.m. lab work and a PICC line, and orders have also been written out for outpatient infusion of Rocephin with labs to be drawn and PICC line protocol. We will plan to see him back in our office in 3 weeks and then again at 6 weeks. He will also follow up with Dr. Minor and his recommendations. These plans have been discussed with and recommended by Dr. Elizabeth. COMORBIDITIES: For Mr. 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 Dictated by JUANITA Quintanilla for John Elizabeth MD cc: John Elizabeth MD [facility]
[2018-12-21] MEDS: TYLENOL PO PRN (19:00)
[2018-12-22] MEDS: TYLENOL PO PRN (01:27)
[2018-12-22] MEDS: ROCEPHIN 2 GM in NS 50 ML IV SCH ×2 (01:27→12:12)
--- NOTE | 2018-12-22 05:56 | GENERAL SURGERY PROGRESS NOTE ---
DATE: 12/22/2018 SUBJECTIVE: The patient seems to be doing okay. Reviewed notes from Dr. Elizabeth. He has orders to get a PICC line today. OBJECTIVE: Vital Signs: The patient's current temperature was 98.4 degrees. His temperature max in the last 24 hours is 101.7. The remainder of the vital signs have been stable. General: No acute distress. HEENT: Normocephalic, atraumatic. Pupils equal, round, and reactive to light. Mucous membranes moist. Oropharynx benign. Neck: Supple. Trachea midline. Cardiovascular: Regular rate and rhythm. Lungs: Grossly clear. Abdomen: Soft, nontender, nondistended. Extremities: Dressing noted to right foot. Reviewed nursing notes from recent change. It overall sounds like it is improving. Skin: Wound as noted above. Vascular: All extremities perfused. Neurologic: Decreased sensation to the feet bilaterally. LABORATORY: None this morning as of yet. ASSESSMENT AND PLAN: A 38-year-old male with right foot wound. 1. Right foot wound. At this time, I am okay with him getting a PICC line and IV antibiotics for 6 weeks. Once he gets this we can continue local wound care. Discharge timing will be deferred to Infectious Disease. He has had a fever in the last 24 hours so may need to monitor him still in the hospital. His white blood cell count has improved. The patient does want to try to avoid an amputation. 2. Hyperglycemia. At this time, it seems to be better controlled, but he does have spikes where it is close to 400. 3. Electrolyte abnormalities. On 12/20 sodium was 123. He does have labs ordered for this morning. 4. Acute kidney injury. This seems to be improving. cc: Gopal Minor MD
[2018-12-22] MEDS: HUMALOG SUBQ SCH ×2 (06:59→11:43)
[2018-12-22 07:01] LABS: INR 1.13; PROTIME 15.4 Seconds (11.0-16.0)
[2018-12-22 07:02] LABS: BASO# 0.06 X1000 (0.0-0.2); BASO% 0.4 % (0.0-0.8); EOS# 0.43 X1000 (0.0-0.7); EOS% 3.2 % (0.0-10.0); HEMATOCRIT 28.3 % (42.0-52.0); HEMOGLOBIN 8.8 g/dL (14.0-18.0); IMM GRAN# 0.09 X1000 (0.0-0.04); IMM GRAN% 0.7 % (0.0-0.5); LYMPH# 2.85 X1000 (1.2-3.4); LYMPH% 21.2 % (20.5-51.1); MCH 28.6 PG (27-31); MCHC 31.1 g/dL (33-37); MCV 91.9 FL (81-99); MONO# 1.06 X1000 (0.11-0.59); MONO% 7.9 % (1.7-9.3); MPV 8.8 FL (7.4-10.4); NEUT# 8.96 X1000 (1.4-6.5); NEUT% 66.6 % (42.2-75.2); PLT 646 X1000 (130-400); RBC 3.08 XMIL (4.7-6.1); RDW 12.5 % (11.5-14.5); WBC 13.45 X1000 (4.8-10.8)
[2018-12-22 07:25] LABS: AGAP 12; ALB/GLOB RATIO 0.6; ALBUMIN 2.9 g/dL (3.5-5.0); ALKALINE PHOSPHATASE 204 U/L (32-122); BUN 22 mg/dL (8-22); CALCIUM 8.8 mg/dL (8.8-10.2); CHLORIDE 101 mmol/L (98-107); COSMO 285; CREATININE 1.1 mg/dL (0.7-1.2); ESTIMATED GFR > 60; GLUCOSE 211 mg/dL (70-104); GOT 27 U/L (10-34); GPT 14 U/L (10-44); POTASSIUM 4.2 mmol/L (3.5-5.1); SODIUM 138 mmol/L (136-145); TCO2 25 mmol/L (25-35); TOTAL BILIRUBIN < 0.15 mg/dL (0.20-1.00); TOTAL PROTEIN 7.4 g/dL (6.3-8.3)
[2018-12-22] MEDS: BASAGLAR SUBQ SCH (08:41)
[2018-12-22] MEDS ORDERED: NS 250 ML ONE (09:11)
[2018-12-22 11:12] VITALS: BP 111/77
--- NOTE | 2018-12-22 13:42 | PROGRESS NOTE ---
DATE: 12/22/2018 SUBJECTIVE: Patient resting in bed. OBJECTIVE: Vital signs: Vital signs are as follows: Temperature 98.7 degrees, pulse 80, respiratory rate 18, blood pressure is 111/77, oxygen saturation 98%. HEENT: Atraumatic, normocephalic. Cardiovascular system: S1, S2. Respiratory system: Has evidence of good air entry bilaterally. Abdomen: Soft, nontender. No masses felt. Extremities: Wound site dressed. Dressing not soaked. Central nervous system: No obvious focal deficits noted. LABS: Labs are as follows: WBC 13.45, hematocrit 28.3 with a platelet count of 646. Sodium is 138, potassium 4.2, chloride 101, bicarbonate 25. BUN is 22, creatinine 1.1. ASSESSMENT AND PLAN: 1. Diabetic foot ulcer with osteomyelitis. Antibiotic management per the Infectious Disease team. Note plans for patient to get PICC line and also plans for patient to be on intravenous antibiotics for a total of 6 weeks. 2. Diabetes mellitus. Continue blood sugar monitoring, as well as sliding scale insulin. 3. Anemia of chronic disease. Follow up on hemoglobin, hematocrit. Transfuse packed red blood cells as needed. 4. Disposition: The patient can be discharged home today if PICC line is placed and outpatient antibiotic is set up. cc: Jun Tanner MD
--- NOTE | 2018-12-22 15:31 | DISCHARGE SUMMARY ---
ADMISSION DATE: 12/15/2018 DISCHARGE DATE: PRINCIPAL DIAGNOSIS: Septic shock secondary to group B strep bacteremia. SECONDARY DIAGNOSES: 1. Right diabetic foot ulcer associated with osteomyelitis. 2. Diabetes mellitus. 3. Anemia of chronic disease. DISCHARGE MEDICATIONS: 1. Rocephin 2 g IV daily to be completed in the outpatient on 01/29/2019. He will need 70/30 25 units subcutaneous twice a day. 2. Tylenol 650 every 6 hours as needed. CONSULTATIONS DONE DURING HOSPITAL STAY: 1. Dr. John Elizabeth, Infectious Disease. 2. Dr. Gopal Minor, General Surgery. PROCEDURES DONE DURING HOSPITAL STAY: Foot x-ray right on 12/15/2018. It showed possibility of chronic osteomyelitis particularly in the base of the 4th metatarsal and cuboid which cannot be excluded. HOSPITAL COURSE: Mr. Vinh Das is a 38-year-old male and has a history of diabetes mellitus type 2 requiring insulin. Also, he has peripheral arterial disease status post amputation of his right 3rd, 4th and 5th toes as well as [*]blood pressure of his right 3rd, 4th and 5th metatarsal. The patient was admitted from the office of Dr. Minor with right diabetic foot ulceration with redness along with fever and also generalized malaise. It turned out the patient was noted to be septic with cultures growing group B strep specifically strep agalactiae. Wound culture also grew group B strep. Antibiotic management was done by the Infectious Disease team. Patient required local wound care while in the hospital. DISCHARGE EXAMINATION: During my evaluation today, vital signs were as follows temperature degrees 98.7, pulse 80, respirations 18, blood pressure is 111/77, and oxygen saturation 98%. HEENT: Atraumatic and normocephalic. Cardiovascular: S1, S2. Respiratory: There is evidence of good air entry bilaterally. Abdomen: Soft and nontender. No masses felt. Extremities: Wound site right foot dressed. LABORATORY DATA: WBC is 13.4, hematocrit 28.3 with a platelet count of 646,000. INR is 1.13. Sodium is 138, potassium 4.2, chloride is 101, bicarb 25, BUN is 22, and creatinine is 1.2. PLAN: Patient can be discharged home today. He will require local wound care as recommended by the surgical team, and also antibiotic infusion in the outpatient as recommended by Infectious Disease team. Rocephin 2 g IV daily has been recommended to end on 01/29/2019. The patient will need to follow up with Dr. John Elizabeth in the outpatient as well. cc: Jun Tanner MD
== END 2018-12-22 16:28 | disposition home or self-care (01) | DRG 871 ==
LOC: SUATTDRO 09:21 → DIRADM 09:21 → 4N 11:06
PROVIDERS: ATTEND Internal Medicine
CPT/HCPCS: 36569; 71010; 71045; 73630; 80048; 80053; 81001; 82009; 82570; 82805; 82948; 83036; 83605; 83735; 83935; 84156; 84300; 85025; 85610; 87040; 87070; 87077; 87186; 87205; 94761; 94799; A9270; J0131; J0696; J0878; J1815; J2405; J2543; J7030; J7050; XXXXX

== ENCOUNTER 2019-01-26 13:11 | Inpatient (IN) ==
--- NOTE | 2019-01-26 14:12 | PROVIDER DOCUMENTATION ---
HPI-General Adult - General Chief Complaint: Abnormal Lab[s] Stated Complaint: ANEMIA WEAKNESS Time Seen by Provider: 01/26/19 14:04 Source: patient Allergies/Adverse Reactions: Patient Allergies Allergy/AdvReac Type Severity Reaction Status Date / Time No Known Allergies Allergy Verified 09/01/18 13:25 Home Medications: Home Medication List Medication Instructions Recorded Confirmed Last Taken Type Insulin NPH Hum/Reg Insulin Hm 25 unit SQ BID #1 insuln.pen 09/07/18 01/10/19 01/10/19 Rx [Humulin 70/30 Kwikpen] - History of Present Illness -Gen Adult Nature of Presenting Problems: 38 YOF PRESENTS AFTER BEING SENT BY INFUSION CLINIC WHERE HE IS RECEIVING TREATMENT FOR A R FOOT WOUND. HE REPORTS THEY TOLD HIM HIS "BLOOD WAS LOW". HE C/O DIZZINESS EARLIER WHEN WALKING, DENIES FALLS, SOB, PALPITATIONS OR OTHER ASSOCIATED SYMPTOMS. Location of Pain/Injury: reports: none Pain Radiation: reports: no radiation Quality of Pain: reports: none Onset/Duration: reports: unsure Context/Activities at Onset: reports: none Modifying Factors: improves with: nothing Associated Symptoms: reports: dizziness Similar Symptoms Previously?: No Recently seen or treated by another doctor?: No Review of Systems - Adult - REVIEW OF SYSTEMS - ADULT Constitutional: reports: no symptoms reported. denies: see HPI, chills, fever, fatique, night sweats, weight gain, weight loss, other Eyes: reports: no symptoms reported. denies: see HPI, discharge, dry eyes, decreased vision, blurred vision, double vision, eye pain, redness, other Ears, Nose, Mouth & Throat: reports: no symptoms reported. denies: see HPI, ear discharge, ear pain, hearing loss, tinnitus, epistaxis, sinus problem, nose pain, loose teeth, mouth/dental pain, mouth swelling, hoarseness, throat pain, throat swelling, other Cardiovascular: reports: no symptoms reported. denies: see HPI, chest pain, edema, heart murmur, irregular heart rate, orthopnea, palpitations, poor circulation, PND, syncope, other Respiratory: reports: no symptoms reported. denies: see HPI, chronic cough, cough, dyspnea on exertion, excessive sputum production, hemoptysis, pleurisy, shortness of breath, wheezing, other Gastrointestinal: reports: no symptoms reported. denies: see HPI, abdominal pain, hematemesis, constipation, diarrhea, difficulty swallowing, frequent heartburn, nausea, poor appetite, rectal bleeding, vomiting, other Genitourinary: reports: no symptoms reported. denies: see HPI, dysuria, discharge, frequency, flank pain, frequent UTI's, hematuria, hesitency, incontinence, urinary retention, urgency, other Musculoskeletal: reports: no symptoms reported. denies: see HPI, bone pain, back pain, frequent leg cramps, joint pain, joint swelling, muscle aches, muscle weakness, neck pain, other Integumentary: reports: skin sores/ulcer (R FOOT). denies: no symptoms reported, see HPI, hives, hair loss, itching, mole changes, nail changes, rash, skin thickening, other Neurological: reports: dizziness/vertigo. denies: no symptoms reported, see HPI, ataxia, headache/migraines, loss of balance, numbness, paresthesia, seizure, slurred speech, syncope, tremors, other Psychiatric: reports: no symptoms reported. denies: see HPI, anxiety, anti- depressant use, alcohol/drug dependence, depression, emotional problems, insomnia, panic attacks, suicidal thoughts, other Endocrine: reports: no symptoms reported. denies: see HPI, change in skin pigment, excessive sweating, goiter, cold intolerance, heat intolerance, increased hunger, increased thirst, polyuria, other Hematologic/Lymphatic: reports: low blood count. denies: no symptoms reported, see HPI, blood clots, easy bruising, lymphedema, prolonged bleeding, swollen lymph nodes, transfusions, other Allergic/Immunologic: reports: no symptoms reported. denies: see HPI, allergic reactions, allergic rhinitis, asthma, eczema, food allergy, frequent infections, hay fever, hives, positive PPD, urticaria, other Past History - Adult - PAST MEDICAL HISTORY-ADULT Review of Records: reports: Nursing Assessment Review, Social history reviewed & non-contributory. Major Childhood Illnesses: reports: denies history Cardiovascular: reports: denies history Respiratory: reports: denies history Gastrointestinal: reports: denies history Obstetrical/Gynecological: reports: denies history Genitourinary: reports: denies history Musculoskeletal: reports: denies history Neurological: reports: denies history Psychiatric: reports: denies history Endocrine/Immune: reports: Diabetes Other Conditions: reports: denies history - PRIOR SURGERIES/PROCEDURES Surgical/Procedure History: reports: reviewed, not pertinent, orthopedic (extremity) (amputation of R lateral foot and digits 3-5), other (R testicle removed) - IMMUNIZATION STATUS Childhood Immunizations: See Nurse Assessment Flu Vaccine: See Nurse Assessment - FAMILY HISTORY Family History: reviewed, not pertinent Physical Exam-General - PHYSICAL EXAM-ADULT Initial Vital Signs Reviewed: Yes - CONSTITUTIONAL General Appearance: appears well, alert, no apparent distress - EYES Eyes: PERRL/EOMI - HEAD, EARS, NOSE, MOUTH & THROAT HENMT: normocephalic/atraumatic, moist mucous membranes, normal ENT inspection - NECK Neck: non-tender, full range of motion, supple - RESPIRATORY Respiratory: chest non-tender, lungs clear, normal breath sounds, no pleuratic chest pain, no respiratory distress, no accessory muscle use - CARDIOVASCULAR Cardiovascular: normal peripheral pulses, regular rate, rhythm, no edema, no gallop, no JVD, no murmur - GASTROINTESTINAL (ABDOMEN) Abdominal Exam: normal bowel sounds, non tender, soft - LYMPHATIC Lymphatic: no adenopathy - MUSCULOSKELETAL Back Exam: normal inspection, no CVA tenderness, no vertebral tenderness Extremity: normal range of motion, other (WOUND TO R FOOT) Peripheral Pulses: dorsalis-pedis (R): 2+, dorsalis-pedis (L): 2+ - SKIN Integumentary: normal color, normal turgor, warm/dry, other (DIABETIC FOOT WOUND R FOOT) - NEUROLOGIC Neurologic: grossly normal - PSYCHIATRIC Psych/Mental Status: normal mood/affect, oriented x 3 Progress - PLAN OF CARE/RESULTS Progress/Plan/Lab Results: Vital Signs - 8 hr 01/26/19 13:23 Temperature 98.1 F Pulse Rate 97 H Respiratory Rate 18 Blood Pressure 77/53 O2 Sat by Pulse Oximetry 99 Orders Category Date Time Status Saline Loc NOW Care 01/26/19 14:05 Active CBC WITH ELECTRONIC DIFF [HEME] Stat Lab 01/26/19 14:04 Uncollected COMPREHENSIVE METABOLIC PANEL [CHEM] Stat Lab 01/26/19 14:04 Uncollected PT [PROTIME WITH INR] [COAG] Stat Lab 01/26/19 14:04 Uncollected PTT [COAG] Stat Lab 01/26/19 14:04 Uncollected TYPE & SCREEN [BBK] Stat Lab 01/26/19 14:05 Uncollected Result Diagrams: 01/26/19 15:32 01/26/19 15:32 - CONSULTS/PCP/HOSPITALIST Notification #1 *Consult/PCP/Hospitalist*: MELINDA WITH HOSPITALIST Reason/Comments: DR ALICEA Consult Disposition: Admit Departure - Departure Date of Disposition Decision: 01/26/19 Time of Disposition Decision: 17:03 DIAGNOSIS: Hyperglycemia, Anemia, Hyponatremia Disposition: ADMITTED INPATIENT 09 Certified Medical Emergency: Emergent Condition: Stable Referrals and Follow-Ups: None,PCP [Primary Care Provider] - - Critical Care Note This patient required my direct & personal management of CC.: Yes Total Time (mins): 31 Critical Care Statement: This patient required my direct personal management to treat or rule out processes, the absence of which, could potentiallly result in sudden, clinically significant life or limb threatening deterioration. Attestation - Physician/ DOUG Attestation Patient care was provided by Advanced Practice Provider:: Yes Advanced Practice Provider:: Pamela Snyder Advanced Practice Provider documentation review:: The Mid-level provider documentation, treatment plan and medical decision making was reviewed by the physician who agrees with all treatment and medical decision making by the MLP. The physician spent face to face time with patient:: No Advanced Practice Provider documentation review:: Supervising physician onsite a nd consulted in the evaluation and care of this patient. The physician did not have a face to face encounter with the patient.
[2019-01-26 16:04] LABS: BASO# 0.04 X1000 (0.0-0.2); BASO% 0.4 % (0.0-0.8); EOS# 0.22 X1000 (0.0-0.7); EOS% 2.1 % (0.0-10.0); HEMATOCRIT 21.5 % (42.0-52.0); HEMOGLOBIN 6.8 g/dL (14.0-18.0); IMM GRAN# 0.02 X1000 (0.0-0.04); IMM GRAN% 0.2 % (0.0-0.5); LYMPH% 16.1 % (20.5-51.1); MCH 27.1 PG (27-31); MCHC 31.6 g/dL (33-37); MCV 85.7 FL (81-99); MONO# 0.85 X1000 (0.11-0.59); MONO% 8.1 % (1.7-9.3); MPV 8.9 FL (7.4-10.4); NEUT% 73.1 % (42.2-75.2); PLT 606 X1000 (130-400); RBC 2.51 XMIL (4.7-6.1); RDW 12.4 % (11.5-14.5); WBC 10.53 X1000 (4.8-10.8)
[2019-01-26] MEDS ORDERED: NS 1,000 ML IV ONE (16:05)
[2019-01-26] MEDS ORDERED: HUMULIN R SUBQ ONE (16:06)
[2019-01-26 16:16] LABS: INR 1.15; PROTIME 15.6 Seconds (11.0-16.0)
[2019-01-26 16:17] LABS: PTT 44.2 Seconds (22.3-41.8)
[2019-01-26 16:27] LABS: AGAP 12; ALB/GLOB RATIO 0.7; ALBUMIN 2.8 g/dL (3.5-5.0); ALKALINE PHOSPHATASE 128 U/L (32-122); BUN 17 mg/dL (8-22); CALCIUM 8.7 mg/dL (8.8-10.2); CHLORIDE 91 mmol/L (98-107); COSMO 282; CREATININE 0.9 mg/dL (0.7-1.2); ESTIMATED GFR > 60; GOT 12 U/L (10-34); GPT 5 U/L (10-44); POTASSIUM 4.6 mmol/L (3.5-5.1); SODIUM 128 mmol/L (136-145); TCO2 25 mmol/L (25-35); TOTAL PROTEIN 6.7 g/dL (6.3-8.3)
[2019-01-26 16:36] LABS: GLUCOSE 520 mg/dL (70-104)
[2019-01-26 16:50] LABS: ALLEN TEST NO; BE 0.9 mmoll (-3.0-3.0); BLOOD TYPE ARTERIAL; HCO3-(ACT) 25.6 mmoll (20.0-26.0); METHB 1.6 % (0.0-1.5); O2HB 95.4 % (95.0-99.0); PCO2(98.6) 37 mmHg (35-45); PO2(98.6) 87 mmHg (60-100); SAMPLE BLOOD; SAO2 99.1 % (95.0-100.0); THB 7.3 g/dL (11.5-17.4); pH(98.6) 7.44 (7.35-7.45)
[2019-01-26 16:51] LABS: MODALITY ROOM AIR
--- NOTE | 2019-01-26 17:46 | Diag Imaging Result Doc PS360 ---
EXAM: CHEST-PORTABLE HISTORY: PICC IN PLACE FROM OSH TECHNIQUE: Portable chest single view COMPARISON: 12/15/2018 FINDINGS: Poor inspiratory effort. There is a left-sided PICC line. Tip overlies the right atrium. No infiltrates. No pleural effusions identified. No pulmonary edema. IMPRESSION: Left PICC line overlies the right atrium. Electronically signed by James Patel 01/26/2019 5:44 PM
[2019-01-26] MEDS ORDERED: HUMULIN R IV ONE (17:50)
[2019-01-26] MEDS: NS 1,000 ML IV SCH (18:18)
[2019-01-26 18:29] LABS: IRON SATURATION 11 %; TIBC 131 ug/dL; TOTAL IRON 15 ug/dL (53-167); UNBOUND IRON 116 ug/dL (112-346)
--- NOTE | 2019-01-26 18:38 | Diag Imaging Result Doc PS360 ---
EXAM: FOOT COMPLETE RIGHT HISTORY: dorsal surface ulcer/heel ulcer, new TECHNIQUE: Right foot, three views COMPARISON: 12/15/2018 FINDINGS: There is prominent tarsal bone destruction on the current exam. Erosions also involve the proximal metatarsals. Severe atherosclerosis. IMPRESSION: Osteomyelitis with prominent interval progression. Electronically signed by James Patel 01/26/2019 6:36 PM
--- NOTE | 2019-01-26 18:46 | HISTORY AND PHYSICAL ---
PRIMARY CARE PHYSICIAN: None. GENERAL SURGEON: Dr. Gopal Minor. CHIEF COMPLAINT: Dizziness. HISTORY OF PRESENT ILLNESS: Mr. Das is a 38-year-old male known to our service with a history of chronic right foot osteomyelitis status post multiple partial amputations / debridements by the surgical team. He also has a history of poorly-controlled diabetes and chronic anemia. He was here last month and actually grew Strep agalactiae group B in the blood, and is currently receiving daily infusions of Rocephin via Dr. Elizabeth. He denies any fever. He reports that his foot looks good; however, he is having increasing swelling and calf pain in the leg. On exam, he does have a dorsal surface wound and a heel ulcer which looks to be new, but there is no drainage noted coming from any of the wounds. He was at the infusion clinic complaining of exertional dizziness which has become progressively worse over the past few days and weeks. The infusion clinic did blood work which showed hemoglobin of 6.8 at which time he was told to come to the ER. Other than the occasional dizziness with exertion and the left foot edema, he does not have any other complaints . He denies, chest pain, dyspnea, fever, abdominal pain, nausea or vomiting. He denies hematochezia or melena. As such, we are going to admit him for further treatment and evaluation. PAST MEDICAL HISTORY: 1. Recent diagnosis of Strep agalactiae bacteremia, on Rocephin, followed by Dr. Elizabeth. 2. Right foot osteomyelitis, status post multiple amputations/debridements. Most recently he had a partial amputation of the 5th metatarsal in August. 3. Poorly-controlled diabetes mellitus, hemoglobin A1c 10.8. 4. Iron-deficiency anemia \ Anemia of chronic disease. PAST SURGICAL HISTORY: 1. Multiple right foot debridements. 2. 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 SOCIAL HISTORY: No tobacco, alcohol or drug use. FAMILY HISTORY: Mother from diabetes-related illness. REVIEW OF SYSTEMS: A 14-point review of systems was obtained and found to be negative with the exception of the HPI. ALLERGIES: No known drug allergies. HOME MEDICATIONS: He takes NPH insulin 25 units subcutaneously b.i.d. PHYSICAL EXAMINATION: VITAL SIGNS: Blood pressure is 120/83, heart rate 102, respiratory rate 18, 02 saturation 99% on room air, temperature 98.1. GENERAL: This is a tbymyckbytq-bdd-mwobhyhll 38-year-old male lying in the hospital bed in no acute distress. NEUROLOGIC: Awake, alert and oriented. Follows commands. No focal deficits. HEENT: Head is atraumatic, normocephalic. Pupils equal, round, and reactive to light. Oral mucosa is dry. Trachea is midline. There is no JVD. CHEST: Clear to auscultation bilaterally. CV: Regular rate and rhythm. S1 and S2 noted. No murmurs. GI: Soft, nondistended, nontender. Bowel sounds positive. EXTREMITIES: The right foot is examined after gauze is removed. He has a 3 to 4 cm linear wound to the dorsal aspect of the right foot, a ruzi-owodzh-jpjkb, slightly necrotic circular area to the heel, and a right lateral 3 to 4 cm incisional wound that is healing. All of them do not have any active drainage or redness. Pulses are diminished at 1+. Calf pain and tenderness noted. DIAGNOSTIC DATA: Chest x-ray shows left PICC which overlies the right atrium. Right foot x-ray is pending. WBCs 10.53, hemoglobin 6.8, hematocrit 21.5, platelet count 606. INR 1.15. ABG on room air: pH of 7.44, CO2 of 37, O2 of 87, bicarb 25.6. Sodium 128, potassium 4.6, chloride 91. CO2 is 25, anion gap 12, BUN 17, creatinine 0.9, glucose 520. Calcium 8.7. AST 12, ALT 5, alkaline phosphatase 128. Albumin 2.8. ASSESSMENT/PLAN: 1. Symptomatic anemia: Anemia is likely secondary to chronic disease. He denies any blood loss. Hemoccult is negative. We will recheck iron studies and give him a unit of packed red blood cells now, and follow up in the morning on his hemoglobin and hematocrit. 2. Hyperglycemia: No evidence of diabetic ketoacidosis. Arterial blood gas does not show acidosis. There is no elevation in the anion gap. Will give him fluids and IV insulin and make sure he is getting b.i.d. 70/30 for long-term coverage. 3. Right foot swelling with right calf pain. Will check a right venous Doppler ultrasound to rule out deep venous thrombosis. 4. Chronic right foot osteomyelitis: Given the visualization of possible new wounds and swelling, we will check a foot xray and inflammatory markers, continue IV rocephin. Depending on the xray, he may need surgery and ID consultation. DVT PPx with Subq heparin, further recommendations to follow. Dictated by JUANITA Felipe for Dandre Lee MD cc: JUANITA Felipe MD [facility]
--- NOTE | 2019-01-26 21:30 | HISTORY AND PHYSICAL ---
ADDENDUM: I agree with most components of history, physical, assessment, and plan. In brief, Mr. Das is a 38-year-old man with past medical history of insulin- dependent diabetes mellitus type 2, peripheral vascular disease related to diabetic neuropathy, status post amputation of 3rd, 4th, and 5th toes transmetatarsally on the right foot by Dr. Minor, and previous issue with insurance regarding his insulin, who was sent from [facility] where he was getting outpatient antibiotics for right foot infection, because of symptomatic dizziness. In the emergency room, he was found to have a hemoglobin of 6.8, and he is being admitted for symptomatic anemia. SUBJECTIVE: He is denying any complaints at the moment. He is complaining of some right foot pain which is well controlled. VITAL SIGNS: Vitals suggest temperature of 98.1 degrees, pulse of 101, blood pressure 120/83, saturating 99% on room air. PHYSICAL EXAMINATION: GENERAL: Does not appear in acute distress. HEENT: Oral cavity is dry. He had mild conjunctival pallor. LUNGS: Air entry bilaterally equal. No wheeze, rhonchi, crackles. HEART: S1, S2 normal. No murmur, rub, or gallop. ABDOMEN: Soft, nontender. EXTREMITIES: No lower extremity edema on the left side. He does have mild lower extremity edema extending up to mid grace level on the right. He also has amputation of 3rd, 4th, and 5th toes, likely transmetatarsally on the right side. LABORATORIES: Suggestive of normocytic anemia with a hemoglobin of 6.8, which is less than 7, and normal ABG. He does have hyperglycemia. He states he has been taking his insulin which is questionable. ASSESSMENT AND PLAN: 1. Acute symptomatic anemia. 2. History of insulin-dependent diabetes mellitus with noncompliance with insulin because of insurance issues and current hyperglycemia. 3. Chronic right foot infection with wound culture with Streptococcus agalactiae septicemia in November 2018, on ceftriaxone. PLAN: I will continue patient on intravenous antibiotics. I will give patient 1 unit of PRBC. We will follow up with CBC tomorrow and also will keep him on insulin. Plan of care discussed with the patient. All of his questions have been answered. I will follow up with Foot xray tomorrow. cc: MD BASSAM Vallejo
[2019-01-26] MEDS: HUMULIN 70/30 SUBQ SCH ×2 (21:57→22:16)
[2019-01-26] MEDS: HUMALOG SUBQ SCH (21:59)
[2019-01-26] MEDS: HEPARIN SUBQ SCH (23:24)
[2019-01-27] MEDS ORDERED: TYLENOL PO PRN (02:48)
[2019-01-27] MEDS: NS 1,000 ML IV SCH ×2 (03:33→15:50)
[2019-01-27] MEDS: HUMALOG SUBQ SCH ×4 (06:00→21:13)
[2019-01-27] MEDS ORDERED: INSULIN PEN NEEDLES ONE (06:40)
[2019-01-27 07:12] LABS: BASO# 0.03 X1000 (0.0-0.2); BASO% 0.3 % (0.0-0.8); EOS# 0.35 X1000 (0.0-0.7); EOS% 3.6 % (0.0-10.0); HEMATOCRIT 25.7 % (42.0-52.0); HEMOGLOBIN 8.1 g/dL (14.0-18.0); IMM GRAN# 0.02 X1000 (0.0-0.04); IMM GRAN% 0.2 % (0.0-0.5); LYMPH# 2.38 X1000 (1.2-3.4); LYMPH% 24.2 % (20.5-51.1); MCH 27.4 PG (27-31); MCHC 31.5 g/dL (33-37); MCV 86.8 FL (81-99); MONO# 0.62 X1000 (0.11-0.59); MONO% 6.3 % (1.7-9.3); MPV 8.7 FL (7.4-10.4); NEUT# 6.44 X1000 (1.4-6.5); NEUT% 65.4 % (42.2-75.2); PLT 593 X1000 (130-400); RBC 2.96 XMIL (4.7-6.1); RDW 12.9 % (11.5-14.5); WBC 9.84 X1000 (4.8-10.8)
[2019-01-27 07:50] LABS: AGAP 11; BUN 17 mg/dL (8-22); CALCIUM 8.2 mg/dL (8.8-10.2); CHLORIDE 99 mmol/L (98-107); COSMO 277; ESTIMATED GFR > 60; GLUCOSE 186 mg/dL (70-104); MAGNESIUM 2.1 mg/dL (1.5-2.7); POTASSIUM 4.1 mmol/L (3.5-5.1); SODIUM 135 mmol/L (136-145); TCO2 25 mmol/L (25-35)
[2019-01-27] MEDS: HUMULIN 70/30 SUBQ SCH (08:42)
[2019-01-27] MEDS: HEPARIN SUBQ SCH ×2 (08:46→21:12)
--- NOTE | 2019-01-27 14:08 | GENERAL SURGERY CONSULTATION ---
DATE: 01/27/2019 REQUESTING PHYSICIAN: Hospitalist. REASON FOR CONSULTATION: Concerning chronic wound. HISTORY OF PRESENT ILLNESS: The patient is a 38-year-old male well known to me for chronic wound to his right foot with osteomyelitis. He has had multiple debridements and amputations. He has had a history of poorly controlled diabetes and chronic anemia. He had been seen by Dr. Elizabeth and had been getting Rocephin for IV infusions for his osteomyelitis. They noticed that he was anemic and sent him over for evaluation. Given his admission I was asked to see the patient. He reports that he thinks his foot actually is getting better and it looks like it actually has. PAST MEDICAL HISTORY: Includes: 1. Recent history of bacteremia. 2. Right foot osteomyelitis. 3. Poorly controlled diabetes. 4. Iron deficiency anemia. 5. Anemia of chronic disease. PAST SURGICAL HISTORY: Includes: 1. Multiple foot debridements and amputations. 2. Traumatic orchiectomy. SOCIAL HISTORY: No tobacco, alcohol, or illicit drugs. FAMILY HISTORY: Positive for diabetes. ALLERGIES: None. HOME MEDICATIONS: Reviewed. REVIEW OF SYSTEMS: A full 10 point review of systems obtained negative except as specified in the HPI. PHYSICAL EXAMINATION: Vital Signs: The patient is currently afebrile. Vital signs have been stable. General: No acute distress. Alert, interactive, male looks stated age. HEENT: Normocephalic and atraumatic. Pupils are equal, round and reactive to light. Mucous membranes are moist. Oropharynx benign. Neck: Supple. Trachea midline. Cardiovascular: Regular rate and rhythm. Lungs: Grossly clear. Abdomen: Soft, nontender, and nondistended. Extremities: His right foot wound actually looks better than it did in the previous wound care visit. There is some swelling noted. Vascular: All extremities perfused. Neurologic: Grossly intact. Skin: Wound as noted above. LABORATORY DATA: White blood count is 10, hematocrit is 21. X-rays reviewed and noted. ASSESSMENT AND PLAN: The patient is a 38-year-old male with symptomatic anemia, hyperglycemia and right foot wound. 1. Symptomatic anemia. At this time being worked up by the hospitalist, we will defer to them. 2. Hyperglycemia. At this time being managed by the hospitalist. 3. Chronic foot wound. At this time he has been on antibiotics as he does not want an amputation, although I think his osteomyelitis has progressed. Overall his wound on the external side looks like it is healing, but again there is some concern that the progression of the bone disease has worsened. He may ultimately require an amputation, but he wants to try to see if we can salvage it with antibiotics. cc: Gopal Minor MD
--- NOTE | 2019-01-27 20:44 | Extremity Venous Study ---
PROCEDURE NAME: Venous U/S Right Leg - 01/26/2019 REQUESTING PROVIDER: JUANITA Wolff. [employer]QU[employer] COMMANDER: Devan. INDICATIONS: 1. Cellulitis. 2. Osteomyelitis. 3. Swelling and pain in the right lower extremity. EQUIPMENT: [employer] Vivid E9 ultrasound system with a 9L-D transducer. FINDINGS: Images of the right lower extremity venous system with comparison shot of the left common femoral vein were obtained in both sagittal and transverse planes. Doppler was used to evaluate veins for spontaneity, phasicity, respiratory excursion, and digital augmentation. RESULTS: Normal venous compression, normal venous flow. No obvious superficial or deep venous thrombosis noted. There is adenopathy noted to the right groin. INTERPRETATION: Adenopathy noted in the right groin, which I would recommend handling clinically, but no obvious superficial or deep venous thrombosis noted. cc: MD Zhao Harris CRNP
[2019-01-27] MEDS: ROCEPHIN 2 GM in NS 50 ML IV SCH (21:12)
--- NOTE | 2019-01-27 22:08 | PROGRESS NOTE ---
DATE: 01/27/2019 INTERVAL HISTORY: His right foot x-ray had suggested increasing osteomyelitis with involvement of tarsal bones as well. His blood sugars were within acceptable range. He tolerated blood transfusion well with appropriate rise in hemoglobin. Surgical team had consulted; however, patient wanted to continue antibiotic therapy rather than further surgical intervention at the moment. SUBJECTIVE: Patient denies any chest pain, shortness of breath. He states he is feeling better. He just had his dinner. He denies any other complaints. PHYSICAL EXAMINATION: Vital Signs: Temperature 98.9 degrees, pulse 91, respiratory rate 18, blood pressure 115/71, saturating 100% on room air. General: He does not appear in any acute distress. Oral Cavity: Moist. Lungs: Air entry bilaterally equal. No wheeze, rhonchi, crackles. Cardiovascular: S1, S2 normal. No murmur, rub, or gallop. Abdomen: Soft, nontender. Extremities: He has mild edema affecting right ankle. His wound is draped and it has started oozing and draining. Dorsalis pedis pulses are hard to palpate. LABS: Appropriate rise in hemoglobin. Stable thrombocytosis. Improving hyponatremia. Resolved hypochloremia. Normal kidney function. Blood sugars are in better control than before. MICROBIOLOGY: Stool occult blood test was negative. IMAGING: Foot x-ray had suggested worsening osteomyelitis with prominent interval progression. ASSESSMENT AND PLAN: 1. Symptomatic anemia, likely because of anemia of chronic disease because of longstanding diabetes, as well as recurrent hospital admissions for right foot infection. Fecal occult blood test was negative. He is status post 1 packed red blood cells. 2. Acute osteomyelitis of right foot with Streptococcus bacteremia, with Streptococcus agalactiae in November 2018, with now progression of his right foot osteomyelitis. He previously did have amputation of transmetatarsally of his 3rd and 4th toes and his 5th toe. Now, the osteomyelitis is also destroying tarsal bones. I will continue him on intravenous ceftriaxone. Surgery is on board. He might become a candidate for amputation again; however, he prefers antibiotic at the moment. I will continue to monitor. 3. History of insulin-dependent diabetes mellitus. I will increase his Humulin dose and I will continue him on sliding scale insulin, with frequent blood sugar checks. 4. Continue heparin for deep venous thrombosis prophylaxis. Venous ultrasound has been completed. I will follow up with the official results to rule out any deep venous thrombosis. 5. Disposition. Patient remains inside the hospital. I will have a discussion with surgical team tomorrow and depending on if no surgical plans are made inpatient, my plan is to discharge him home with outpatient surgery followup. cc: Dandre Lee MD
[2019-01-28] MEDS: HUMALOG SUBQ SCH ×4 (06:31→20:57)
[2019-01-28 07:43] LABS: BASO# 0.04 X1000 (0.0-0.2); BASO% 0.5 % (0.0-0.8); EOS# 0.34 X1000 (0.0-0.7); EOS% 4.2 % (0.0-10.0); HEMATOCRIT 27.1 % (42.0-52.0); HEMOGLOBIN 8.4 g/dL (14.0-18.0); IMM GRAN# 0.03 X1000 (0.0-0.04); IMM GRAN% 0.4 % (0.0-0.5); LYMPH# 1.95 X1000 (1.2-3.4); LYMPH% 24.1 % (20.5-51.1); MCH 27.3 PG (27-31); MONO# 0.54 X1000 (0.11-0.59); MONO% 6.7 % (1.7-9.3); MPV 8.5 FL (7.4-10.4); NEUT# 5.19 X1000 (1.4-6.5); NEUT% 64.1 % (42.2-75.2); PLT 599 X1000 (130-400); RBC 3.08 XMIL (4.7-6.1); RDW 12.8 % (11.5-14.5); WBC 8.09 X1000 (4.8-10.8)
[2019-01-28 07:58] LABS: AGAP 12; BUN 14 mg/dL (8-22); CALCIUM 7.9 mg/dL (8.8-10.2); CHLORIDE 104 mmol/L (98-107); COSMO 278; CREATININE 0.8 mg/dL (0.7-1.2); ESTIMATED GFR > 60; GLUCOSE 160 mg/dL (70-104); MAGNESIUM 2.1 mg/dL (1.5-2.7); SODIUM 137 mmol/L (136-145); TCO2 21 mmol/L (25-35)
[2019-01-28] MEDS: HEPARIN SUBQ SCH ×2 (10:12→20:57)
--- NOTE | 2019-01-28 17:19 | PROGRESS NOTE ---
DATE: 01/28/2019 INTERVAL HISTORY: No acute events overnight. His blood sugars were better controlled after increasing his insulin dose. SUBJECTIVE: He denies any complaints. He denies any right lower extremity pain. However, he states that the foot is draining now. VITAL SIGNS: Temperature 98.8 degrees, pulse 96, respiratory rate 16, blood pressure 130/80 and saturating 100% room air. PHYSICAL EXAMINATION: General: Does not appear in any acute distress. Oral cavity is moist. Lungs: Air entry bilaterally equal. No wheeze, rhonchi, or crackles. Cardiovascular: S1, S2 normal. No murmur or gallop. Abdomen: Soft, nontender. Extremities: He has edema affecting right ankle as well as right lower leg. He has open wound on previously performed metatarsal transmetatarsal amputation of 3rd, 4th and 5th toes. The wound is draining serosanguineous to pussy discharge. It is minimally tender. Dorsalis pedis pulses hard to palpate on the right side. It is adequate on the left side. LABORATORY: Suggestive of normocytic anemia which is stable. Thrombocytosis. His electrolytes are within acceptable range. ASSESSMENT AND PLAN: 1. Symptomatic anemia because of anemia of chronic disease because of long-standing insulin- dependent diabetes mellitus as well as recurrent hospital admission for right foot infection. Fecal occult blood test is negative, status post 1 PRBC. Now, he is no longer symptomatic for his anemia. 2. 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 Repeat x- ray of foot this admission suggests progression of osteomyelitis involving tarsal bones as well. Continue intravenous ceftriaxone. Infectious Disease has been consulted. Surgery is on board. In my opinion, patient would need surgical intervention. However, patient wants to think about it. I counseled him about making decision as well as talking with his family. Meanwhile, continue ceftriaxone. 3. History of insulin-dependent diabetes mellitus with hyperglycemia. Continue current dose of Humulin and increase as tolerated. 4. Others. Continue heparin for DVT prophylaxis and follow up venous ultrasound to rule out right lower extremity DVT. DISPOSITION: Patient remains inside the hospital. His acute issue is that he presented with anemia which is resolved. I am awaiting further surgery recommendations for the need for surgical debridement. Accordingly, I will consider discharging him in the next 48 hours if no inpatient surgical planning. cc: Dandre Lee MD
[2019-01-28] MEDS: HUMULIN 70/30 SUBQ SCH (18:48)
[2019-01-28] MEDS ORDERED: HUMULIN 70/30 SUBQ SCH (20:10)
[2019-01-28] MEDS: ROCEPHIN 2 GM in NS 50 ML IV SCH (20:57)
--- NOTE | 2019-01-28 21:30 | INFECTIOUS DISEASE PROGRESS NO ---
DATE: 01/28/2019 PRESENT ILLNESS: The patient has a right foot progressive osteomyelitis due to Streptococcus agalactiae and there is an associated bacteremia. I think there could be an element of Charcot arthropathy involving the patient's right foot infection. MEDICATIONS: Tomorrow will be the 6th week of treatment the patient has received with Rocephin 2 g IV daily. PHYSICAL EXAMINATION: Vital Signs: Temperature is 98.8 degrees, pulse 96, respirations 16, blood pressure 131/82. General: This is a chronically ill-appearing young male. He is in no acute distress. Head/eyes/ears/nose/throat: He can hear my spoken words and see near objects. He does not have any white patches on his tongue. Neck: No meningismus. Lungs: Clear to auscultation. Cardiovascular: Heart rate is regular. Abdomen: Soft and nontender. Extremities: The patient has a PICC in the left arm. The dressing site is not erythematous or purulent. The patient's right foot has a large dressing around it. The dressing is intact. Neurologic: The patient is alert. He can move his extremities. There is no tremor. LAB AND X-RAY: CBC shows a white count of 8090, hemoglobin 8.4, platelet count 599,000. Creatinine is 0.8. GFR is greater than 60. Alkaline phosphatase is 128. Chest x-ray is clear. Patient's x-ray of his right foot shows progressive osteomyelitis. ASSESSMENT AND PLAN: I agree with placing the patient on Rocephin. Tomorrow I am going to remove the patient's dressing and try to obtain a deep culture from his foot to see if there is a continuing infection or possibly a new infectious agent. I think that there may be a an element of Charcot arthropathy that is going on in the patient's right foot as well. COMORBIDITIES: The patient has diabetes mellitus and anemia of chronic disease. cc: John Elizabeth MD
[2019-01-29] MEDS: HUMALOG SUBQ SCH ×4 (06:16→21:26)
[2019-01-29] MEDS: HUMULIN 70/30 SUBQ SCH ×2 (06:17→21:24)
--- NOTE | 2019-01-29 09:29 | INFECTIOUS DISEASE PROGRESS NO ---
DATE: 01/29/2019 PRESENT ILLNESS: The patient has a progressive right foot osteomyelitis due to Streptococcus agalactiae. There also is an associated bacteremia. I think possibly there could be a component of a Charcot arthropathy involving the patient's right foot. MEDICATIONS: The patient has today finished 6 weeks of IV Rocephin to treat the patient's right foot infection as well as the streptococcal bacteremia. PHYSICAL EXAMINATION: Vital Signs: Temperature is 98.2 degrees, pulse 81, respirations 20, blood pressure 100/67. General: This is a chronically ill-appearing, young male. He is in no acute distress. Head, Eyes, Ears, Nose, and Throat: He can hear my spoken words and see near objects. He does not have any white coating of his tongue. Neck: No meningismus. Extremities: The patient has a PICC in the left arm. The PICC site is not swollen or tender. I removed the dressing from the patient's right foot. It is very swollen. Laterally, there is an ulcerated area. I put a swab in the ulcerated area laterally on the foot and it went a little bit deep. The fluid looked purulent. It did not have any odor. I have sent that to the lab for culture and susceptibility testing if something grows. Neurologic: The patient is alert. He is able to walk. There is no tremor. LAB AND X-RAY: There is no new lab or x-ray for today. ASSESSMENT AND PLAN: As mentioned above, the patient has finished 6 weeks of intravenous antibiotics to treat his osteomyelitis of the foot and his bacteremia. Not only has the right foot not improved but on x-ray, the osteomyelitis has progressed. I am going to stop Rocephin and then see what grows from the culture. I told the patient, at this time, I do not think there is any way that we will be able to treat him medically and clear his infection. I am going to stop Rocephin because it does not seem to be improving his osteomyelitis. I will wait for the results of the culture I took today to see if there is any other antibiotic option to help the patient. COMORBIDITIES: The patient has diabetes mellitus and anemia of chronic disease. cc: John Elizabeth MD
[2019-01-29] MEDS: HEPARIN SUBQ SCH ×2 (10:32→21:25)
--- NOTE | 2019-01-29 17:54 | GENERAL SURGERY PROGRESS NOTE ---
DATE: 01/29/2019 Mr. Das's right foot appears to be a Charcot foot with ulcerations. His destruction in his mid foot dictate that really he will only be able to walk again with an amputation, and I think the sooner he gets it, the better he will be up on his feet. cc: Raghavendra Snyder MD
--- NOTE | 2019-01-29 18:31 | PROGRESS NOTE ---
DATE: 01/30/2019 INTERVAL HISTORY: No acute events overnight. Infectious Disease Team has taken a swab from his right foot wound and they have stopped the ceftriaxone since he has completed 6 weeks of treatment. SUBJECTIVE: Patient states that he wants a 2nd opinion from the doctor in [place] about amputation or medical management before proceeding with the surgery. VITALS: Temperature 98.8 degrees, pulse 91, respiratory rate 14, blood pressure 115/77, saturating 100% room air. PHYSICAL EXAMINATION: General: Does not appear in any acute distress. Oral cavity is moist. Air entry bilateral equal. No wheeze, rhonchi, crackles. Abdomen soft, nontender. He has edema affecting right ankle and right lower leg. He has open wound on previously performed transmetatarsal amputation of 3rd, 4th and 5th toes. The wound is draining serosanguineous to pussy discharge. It is minimally tender. Dorsalis pedis pulse is hard to palpate on right side, they are adequate on the left side. LABS: His blood sugars have been in acceptable range most of the times. Microbiology. Right foot culture has been collected. It is pending. No new imaging data. ASSESSMENT AND PLAN: 1. Symptomatic anemia because of anemia of chronic disease because of longstanding insulin- dependent diabetes mellitus as well as recurrent hospital admission for chronic osteomyelitis of right foot. Fecal occult blood test is negative status post 1 packed red blood cell. He is no longer symptomatic. 2. Acute on chronic osteomyelitis of right foot with Streptococcus agalactiae bacteremia in November 2018 now status post 6 weeks of intravenous ceftriaxone completed course on 01/28/2019. Repeat x-ray of his foot suggests worsening osteomyelitis involving carpal bones as well. Followup repeat wound culture. Surgery on board however patient wants to get a 2nd opinion in [place] before proceeding with surgery. 3. History of insulin-dependent diabetes mellitus with hyperglycemia. Continue current dose of Humulin. 4. Continue heparin for deep venous thrombosis prophylaxis and follow final venous ultrasound result to rule out right lower extremity DVT. 5. Disposition. At this point I am awaiting wound culture from the right foot. Depending on that, I would have discussion with the surgery and ID team if we can discharge him on suppressive oral antibiotics until the patient can see his doctor in [place] and possibly decide about surgery. I have extensively counseled patient about the need for surgery on the right foot but he would prefer to see a doctor in [place] before making a final decision. I would appreciate Surgery and Infectious Disease recommendation about these plan pending wound cultures. I have explained to the patient about risk of worsening infection if the surgery is not performed soon enough and he understands it. cc: Dandre Lee MD MTDD
[2019-01-30] MEDS: HUMALOG SUBQ SCH ×4 (06:26→20:27)
[2019-01-30] MEDS: HUMULIN 70/30 SUBQ SCH ×2 (06:27→19:08)
[2019-01-30] MEDS: HEPARIN SUBQ SCH ×2 (10:37→20:27)
--- NOTE | 2019-01-30 15:05 | PROGRESS NOTE ---
DATE: 01/30/2019 INTERVAL HISTORY: He did have an episode of a blood sugar of 72 overnight and his repeat wound culture is growing gram-negative kandis. SUBJECTIVE: He denies any complaints. He states his dressing needs to be changed as it is draining. VITALS: Currently, temperature of 98.4 degrees, pulse 86, respiratory rate 16, blood pressure 120/83, saturating 100% on room air. PHYSICAL EXAMINATION: General: Does not appear in any acute distress. Oral cavity is moist. Lungs: Air entry bilaterally equal. No wheeze, rhonchi, crackles. Cardiovascular: S1, S2 normal. No murmur or gallop. No tachycardia. Abdomen: Soft, nontender. He has edema affecting right ankle and the right lower leg. I had looked at his dressing yesterday and he has a wound on previously performed transmetatarsal amputation of 3rd, 4th, and 5th toes. On the lateral side, the wound is open and is draining serosanguineous to pussy discharge without any foul smell and was minimally tender. Left foot appears normal. LABS: No new CBC or BMP today. ASSESSMENT AND PLAN: 1. Symptomatic anemia because of anemia of chronic disease because of long-standing insulin- dependent diabetes mellitus as well as recurrent hospitalization for osteomyelitis of right foot. Fecal occult blood test was negative. Status post 1 week of status post 1 unit of packed red blood cells. He is no longer symptomatic and blood count is stable. 2. Acute on chronic osteomyelitis of the right foot with Streptococcus agalactiae bacteremia in November 2018, now status post 6 weeks of intravenous ceftriaxone, completed on January 28. Repeat x-ray this admission suggests osteomyelitis involving carpal bones as well and the wound culture is growing gram-negative kandis. I will start patient on intravenous cefepime and follow up with final results. Infectious disease on board. 3. History of insulin-dependent diabetes mellitus with hyperglycemia. I will adjust the insulin dose today because of his low blood sugars and I will continue heparin subcutaneous for deep venous thrombosis prophylaxis, though the venous ultrasound result is pending for ruling out right lower extremity deep venous thrombosis. 4. Disposition. When the final wound culture result is back, my plan is to discuss with infectious disease and surgery team about changing the antibiotics to oral, and have patient see the doctor of his choice in [place] as soon as possible. Again, I discussed with the patient that delaying surgery puts him at high risk of bacteremia and he would need surgery to take care of his osteomyelitis, and he understands it. However, he would prefer to get a second opinion in [place]. I will keep infectious disease and surgery team in the loop once the final wound cultures are back. cc: Dandre Lee MD
[2019-01-30] MEDS: MAXIPIME 2 GM in NS 100 ML IV SCH (15:47)
--- NOTE | 2019-01-30 17:48 | INFECTIOUS DISEASE PROGRESS NO ---
DATE: 01/30/2019 PRESENT ILLNESS: Mr. Das has a right foot osteomyelitis, which seems to have worsened after a course of 6 weeks of IV Rocephin. At this point, there is a gram-negative kandis growing. MEDICATIONS: He is receiving cefepime 2 g IV every [address] started by Dr[address] Lee. As mentioned he has finished a 6-week course of Rocephin IV. PHYSICAL EXAMINATION: Vital Signs: Temperature is 98.8 degrees, pulse rate 94, respiratory rate 17, blood pressure 117/80, O2 saturation 100% on room air. General: This is a chronically ill- appearing middle-aged gentleman. He is lying in the bed currently in no acute distress. HEENT: Atraumatic, normocephalic. Oral mucous membranes are pink and moist. Conjunctivae are pale. Neck: Supple. Trachea is midline. Cardiovascular: Heart rate is regular. Respiratory: Lung sounds are clear to auscultation bilaterally. No work of breathing noted. Extremities: There is a dressing and Coban wrap noted to the right foot, not removed at this time. There is a 1+ pretibial edema to the right lower extremity. Abdomen: Soft, round, nontender. Bowel sounds are active. Neurologic: He is awake, alert, oriented, and able to move all extremities independently in the bed. LABORATORY AND X-RAY: No labs today. His right foot is growing a gram-negative kandis. No imaging reports today. ASSESSMENT AND PLAN: Mr. Das has completed 6 weeks of treatment for strep osteomyelitis but unfortunately problems with his foot have progressed, and there is currently a gram-negative kandis growing with worsening of the osteomyelitis in part due to the patient's walking on the foot. There is a gram-negative kandis growing to his right foot, and Dr. Lee has started him on cefepime. Tentatively, there is a plan for him to go to [place] to see his primary care doctor and Dr. Lee is asking for him to be sent out on oral antibiotics. We will await the final cultures, and hopefully the patient will be able to take a something by mouth when he is ready to go home. These plans have been discussed with and recommended by Dr. Elizabeth. COMORBIDITIES: For Mr. Das include a previous right foot osteomyelitis with multiple amputations and poorly controlled diabetes mellitus, as well as anemia of chronic disease. Dictated by JUANITA Quintanilla for John Elizabeth MD cc: John Elizabeth MD [facility]
[2019-01-31] MEDS: MAXIPIME 2 GM in NS 100 ML IV SCH ×2 (02:29→13:25)
[2019-01-31] MEDS: HUMALOG SUBQ SCH ×3 (06:33→17:05)
[2019-01-31] MEDS: HUMULIN 70/30 SUBQ SCH (06:34)
[2019-01-31 06:58] LABS: BASO# 0.03 X1000 (0.0-0.2); BASO% 0.3 % (0.0-0.8); EOS# 0.31 X1000 (0.0-0.7); EOS% 3.1 % (0.0-10.0); HEMATOCRIT 26.6 % (42.0-52.0); HEMOGLOBIN 8.1 g/dL (14.0-18.0); IMM GRAN# 0.03 X1000 (0.0-0.04); IMM GRAN% 0.3 % (0.0-0.5); LYMPH# 2.13 X1000 (1.2-3.4); LYMPH% 21.6 % (20.5-51.1); MCH 27.4 PG (27-31); MCHC 30.5 g/dL (33-37); MCV 89.9 FL (81-99); MONO# 0.67 X1000 (0.11-0.59); MONO% 6.8 % (1.7-9.3); MPV 8.1 FL (7.4-10.4); NEUT% 67.9 % (42.2-75.2); PLT 614 X1000 (130-400); RBC 2.96 XMIL (4.7-6.1); RDW 13.4 % (11.5-14.5); WBC 9.87 X1000 (4.8-10.8)
--- NOTE | 2019-01-31 07:48 | GENERAL SURGERY PROGRESS NOTE ---
DATE: 01/31/2019 SUBJECTIVE: The patient seems to be doing about the same. Reviewed notes from other physicians. There is a potential plan for him to get a second opinion in [place]. I suspect he ultimately will require [id number] amputation, but at this point, per patient's wishes, will hold off and continue antibiotics and have him be evaluated in [place]. He can follow up with me if he is still in the area. cc: Gopal Minor MD
[2019-01-31] MEDS: HEPARIN SUBQ SCH (09:56)
[2019-01-31 12:17] VITALS: BP 119/76
--- NOTE | 2019-01-31 21:47 | DISCHARGE SUMMARY ---
ADMISSION DATE: 01/26/2019 DISCHARGE DATE: 01/31/2019 DISCHARGE DISPOSITION: Home. From there patient is going to make arrangement to go to [place] as soon as possible. DISCHARGE CONDITION: Patient is hemodynamically stable, alert, oriented x3. Only complains of mild foot pain. DISCHARGE DIAGNOSES: 1. Symptomatic anemia because of anemia of chronic disease related to longstanding history of insulin-dependent diabetes mellitus as well as multiple hospitalization for osteomyelitis of right foot. 2. Acute on chronic osteomyelitis of right foot involving now tarsal bones. 3. Recent history of Streptococcus agalactiae bacteremia in November 2018 from right foot status post 6 weeks of intravenous ceftriaxone completed on January 28. 4. Recurrent infection of right foot with gram-negative kandis on repeat wound culture pending final culture and sensitivity. However as per discussion with Infectious Disease it is resistant to multiple antibiotics. 5. Hyperglycemia with history of insulin-dependent diabetes mellitus and medical noncompliance . OTHER DIAGNOSIS: 1. History of insulin-dependent diabetes mellitus . 2. Right foot nonhealing wound with prior history of transmetatarsal amputation of 3rd, 4th, 5th toe of right foot and recurrent osteomyelitis episodes. CONSULTATION: Infectious Disease Dr. Elizabeth, General Surgeon Dr. Minor. DISCHARGE MEDICATION: Insulin NPH, Humulin 70/30 KwikPen 32 units subcutaneous b.i.d. acetaminophen 650 mg p.o. q.6 hours as needed for pain. VITALS: At the time of discharge temperature 98.9 degrees, pulse 91, respiratory 20, blood pressure 120/76, saturating 100% room air. PHYSICAL EXAM: At the time of discharge. Oral cavity is moist. Mild pallor. No cyanosis, clubbing or icterus. Air entry bilateral equal. No wheeze, rhonchi, crackles. S1, S2 normal. No murmur or gallop. Abdomen soft, nontender. Left lower extremity unremarkable. Right lower extremity, he has mild tenderness on the right foot. He has bandage around his right foot. He does have transmetatarsal amputation of 3rd, 4th, 5th toe of the right foot with an open incision on the lateral aspect which is draining serosanguineous pus discharge, dorsalis pedis pulses difficult to palpate. SIGNIFICANT LABS: On admission he had hemoglobin of 6.8 and he received 1 unit of transfusion following which his hemoglobin had increased to 8.1. He did not have leukocytosis with WBC of 9.8, platelet of 614,000. On arrival his blood sugar were more than 500 which at the time of discharge was 141. Significant microbiology. Stool occult blood test was negative. Right foot wound culture was growing gram-negative kandis. Final culture and sensitivity is pending however according to Infectious Disease resistant to multiple antibiotics SIGNIFICANT IMAGING: Extremity venous study had detected adenopathy in right groin without any superficial DVT. Foot x-ray on 01/26 had suggested osteomyelitis with prominent interval progression and now involving the proximal metatarsal as well as carpal bone with severe atherosclerosis. HOSPITAL COURSE SUMMARY: Mr. Das is 38 years old man with a past medical history of insulin-dependent diabetes mellitus, peripheral vascular disease related to diabetic neuropathy, status post amputation of 3rd, 4th and 5th toes transmetatarsal on the right foot and previous medical noncompliance who was sent from outpatient infusion center where he was getting outpatient intravenous antibiotics through left PICC line for right foot infection associated Streptococcus agalactiae bacteremia. Apparently patient was at infusion center and was complaining of dizziness and the blood count came by 6.8 so he was sent to emergency room for treatment of symptomatic anemia. He was given 1 unit of blood transfusion following which his dizziness had disappeared. However repeat right foot x-ray had suggested progression of his osteomyelitis which now was involving proximal metatarsal bones as well as tarsal bones. Patient was started intravenous cefepime and local wound culture was obtained. Considering progression of osteomyelitis surgical team has recommended below-knee amputation and he has already completed 6 weeks of intravenous antibiotics so further antibiotics may not have improved his progression. However patient did not want to offer surgery and he wanted a 2nd opinion from his doctor in [place]. I explained to the patient about spread of infection if surgery is not performed soon and he understood it so after discussion with the surgical and Infectious Disease team patient was discharged without any antibiotics. His PICC line was removed and he was again extensively counseled about seeing a doctor in [place] as soon as possible and discussed about his foot condition as in our opinion it would require below-knee amputation. TIME SPENT: More than 30 minutes. All of his questions were answered. cc: Dandre Lee MD
== END 2019-01-31 17:56 | disposition home or self-care (01) | DRG 638 ==
LOC: ED 13:11 → 3N 18:40
PROVIDERS: ATTEND Internal Medicine
CPT/HCPCS: 36430; 71010; 71045; 73630; 80048; 80053; 82270; 82607; 82728; 82746; 82805; 82948; 83540; 83550; 83735; 85025; 85610; 85651; 85730; 86140; 86850; 86900; 86901; 86920; 87070; 87077; 87186; 93971; 96360; 99285; 99291; A9270; J0692; J0696; J1644; J1815; J7030; P9016; XXXXX